=== PATIENT | male | born 1990 | race Caucasian/White ===

== ENCOUNTER 2020-01-14 06:52 | Inpatient (IN) | payer OTHER ==
[2020-01-14] MEDS ORDERED: LORazepam 2 MG/ML INJ IM STA (06:58)
--- NOTE | 2020-01-14 07:19 | ED ---
General Adult HPI - General Chief complaint: Psychiatric Symptoms Stated complaint: Mental Health Time Seen by Provider: 01/14/20 06:58 Source: police, EMS, RN notes reviewed, old records reviewed Mode of arrival: EMS Limitations: no limitations - History of Present Illness Initial comments: Patient is a 29-year-old male presents for his murmurs today via EMS after [place] [address] Patient is reportedly traveling from to come see with his friend. His friend reportedly stopped at a rest stop. The friend returned from the restaurant to the car he found that Zuhair was missing and running down [id number]. The friend's name is Arvind, called 911 and police and EMS arrived to Zuhair calling himself stay in and speaking in "gibberish". Patient reports that his name is not Zuhair and it is "lumeni". Patient denies any drug use at this time but does report that he "ate souls". Patient claims that he is the devil. Review of Systems ROS Statement: Those systems with pertinent positive or pertinent negative responses have been documented in the HPI. ROS Other: All systems not noted in ROS Statement are negative. Past Medical History Past Medical History: Unable to Obtain History of Any Multi-Drug Resistant Organisms: Unobtainable Past Surgical History: Unable to Obtain Past Psychological History: Unable to Obtain Smoking Status: Unknown if ever smoked Past Alcohol Use History: Unable to Obtain Past Drug Use History: Unable to Obtain General Exam - General Exam Comments Initial Comments: 29-year-old male. Limitations: no limitations General appearance: alert, in no apparent distress Head exam: Present: atraumatic, normocephalic, normal inspection, other (diaphoretic) Eye exam: Present: normal appearance, EOMI. Absent: PERRL (dilated pupil), scleral icterus, conjunctival injection, periorbital swelling ENT exam: Present: normal exam, mucous membranes dry, mucous membranes moist. Absent: normal oropharynx Neck exam: Present: normal inspection. Absent: tenderness, meningismus, lymphadenopathy Respiratory exam: Present: normal lung sounds bilaterally. Absent: respiratory distress, wheezes, rales, rhonchi, stridor Cardiovascular Exam: Present: regular rate, normal rhythm, normal heart sounds. Absent: systolic murmur, diastolic murmur, rubs, gallop, clicks GI/Abdominal exam: Present: soft, normal bowel sounds. Absent: distended, tenderness, guarding, rebound, rigid Extremities exam: Present: normal inspection, full ROM, normal capillary refill. Absent: tenderness, pedal edema, joint swelling, calf tenderness Back exam: Present: normal inspection Neurological exam: Present: altered Psychiatric exam: Present: agitated, manic, other (Patient is hyperverbal, with nonsensical rambling.). Absent: normal affect, normal mood, anxious Skin exam: Present: warm, dry, intact, normal color. Absent: rash Course Vital Signs 01/14/20 06:57 Temperature 103.1 F H Pulse Rate 73 Respiratory 22 Rate O2 Sat by Pulse 94 L Oximetry - Reevaluation(s) Reevaluation #1: 01/14/20 07:18 I intended to contact patient's friend at Arvind Tellez whom is [facility] at [facility]. The phone went to [employer]. Arvind Tellez's phone number is [phone]. Procedures - Restraint - Face to Face Restraint Occurrence 1 Patient's Immediate Situation: Endangers self safety, Endangers others' safety, Violent behavior Patient's Immediate Situation - Comment: Patient was transitioned from handcuffs from police upon arrival to emergency department as a 4. restraints due to restlessness agitation and bizarre behavior. Patient's Reaction to the Intervention: Anxious, Bizarre, Restless, Resistive to care Patient's Medical & Behavioral Condition: Anxious, Agitated, Flight of ideas, Bizarre behavior Need to Continue or Terminate Restraint or Seclusion: Continue Face to Face Eval of Restraint Date: 01/14/20 Face to Face Eval of Restraint Time: 06:55 Medical Decision Making - Medical Decision Making 29-year-old male presents emergency department today for concern for altered mental status and was found in the highway naked. He Patient was thought to be febrile agitated and diaphoretic upon arrival. Urine drug screen is positive for amphetamines. Patient required Ativan and Haldol for sedation. He was placed in 4. soft restraints due to agitation appear for harming himself. Patient's lab work was reviewed. This have evidence of leukocytosis of 24,000. No other source for fever at this time. Blood cultures were completed. Was given 1 dose of IV Rocephin. Patient's fever is coming down after receiving fluids. Allegedly the fever is related to being out in the hot sun and agitated and methamphetamine use. CT of the brain was negative for acute process. Patient was reevaluated now more sedated at this time. Discusses Dr. Singh also examined Patient. Patient will be admitted this time medically for fever, and psychosis. - Lab Data Result diagrams: 01/14/20 07:53 01/14/20 07:53 Lab Results 01/14/20 01/14/20 01/14/20 Range/Units 07:12 07:24 07:53 WBC 24.5 H (3.8-10.6) k/uL RBC 4.76 (4.30-5.90) m/uL Hgb 15.7 (13.0-17.5) gm/dL Hct 44.5 (39.0-53.0) % MCV 93.5 (80.0-100.0) fL MCH 32.9 (25.0-35.0) pg MCHC 35.2 (31.0-37.0) g/dL RDW 12.6 (11.5-15.5) % Plt Count 322 (150-450) k/uL Neutrophils % 88 % Lymphocytes % 6 % Monocytes % 4 % Eosinophils % 0 % Basophils % 0 % Neutrophils # 21.6 H (1.3-7.7) k/uL Lymphocytes # 1.5 (1.0-4.8) k/uL Monocytes # 1.1 H (0-1.0) k/uL Eosinophils # 0.0 (0-0.7) k/uL Basophils # 0.1 (0-0.2) k/uL PT (9.0-12.0) sec INR (<1.2) APTT (22.0-30.0) sec Sodium (137-145) mmol/L Potassium (3.5-5.1) mmol/L Chloride (98-107) mmol/L Carbon Dioxide (22-30) mmol/L Anion Gap mmol/L BUN (9-20) mg/dL Creatinine (0.66-1.25) mg/dL Est GFR (CKD-EPI)AfAm (>60 ml/min/1.73 sqM) Est GFR (CKD-EPI)NonAf (>60 ml/min/1.73 sqM) Glucose (74-99) mg/dL Lactic Ac Sepsis Rflx Plasma Lactic Acid Sammy (0.7-2.0) mmol/L Calcium (8.4-10.2) mg/dL Total Bilirubin (0.2-1.3) mg/dL AST (17-59) U/L ALT (4-49) U/L Alkaline Phosphatase (38-126) U/L Total Protein (6.3-8.2) g/dL Albumin (3.5-5.0) g/dL TSH (0.465-4.680) mIU/L Urine Color Yellow Urine Appearance Cloudy (Clear) Urine pH 6.5 (5.0-8.0) Ur Specific [place] 1.036 H (1.001-1.035) Urine Protein 2+ H (Negative) Urine Glucose (UA) Negative (Negative) Urine Ketones 1+ H (Negative) Urine Blood Negative (Negative) Urine Nitrite Negative (Negative) Urine Bilirubin Negative (Negative) Urine Urobilinogen 4.0 (<2.0) mg/dL Ur Leukocyte Esterase Negative (Negative) Urine RBC 7 H (0-5) /hpf Urine WBC 7 H (0-5) /hpf Ur Squamous Epith Cells <1 (0-4) /hpf Urine Bacteria Many H (None) /hpf Hyaline Casts 4 H (0-2) /lpf Urine Mucus Many H (None) /hpf Urine Yeast (Budding) Occasional H (None) /hpf Urine Sperm Many H (None) /hpf Urine Opiates Screen Not Detected (NotDetected) Ur Oxycodone Screen Not Detected (NotDetected) Urine Methadone Screen Not Detected (NotDetected) Ur Propoxyphene Screen Not Detected (NotDetected) Ur Barbiturates Screen Not Detected (NotDetected) U Tricyclic Antidepress Not Detected (NotDetected) Ur Phencyclidine Scrn Not Detected (NotDetected) Ur Amphetamines Screen Detected H (NotDetected) U Methamphetamines Scrn Detected H (NotDetected) U Benzodiazepines Scrn Not Detected (NotDetected) Urine Cocaine Screen Not Detected (NotDetected) U Marijuana (THC) Screen Detected H (NotDetected) 01/14/20 01/14/20 01/14/20 Range/Units 07:53 07:53 07:53 WBC (3.8-10.6) k/uL RBC (4.30-5.90) m/uL Hgb (13.0-17.5) gm/dL Hct (39.0-53.0) % MCV (80.0-100.0) fL MCH (25.0-35.0) pg MCHC (31.0-37.0) g/dL RDW (11.5-15.5) % Plt Count (150-450) k/uL Neutrophils % % Lymphocytes % % Monocytes % % Eosinophils % % Basophils % % Neutrophils # (1.3-7.7) k/uL Lymphocytes # (1.0-4.8) k/uL Monocytes # (0-1.0) k/uL Eosinophils # (0-0.7) k/uL Basophils # (0-0.2) k/uL PT 10.8 (9.0-12.0) sec INR 1.0 (<1.2) APTT 21.0 L (22.0-30.0) sec Sodium 147 H (137-145) mmol/L Potassium 4.1 (3.5-5.1) mmol/L Chloride 108 H (98-107) mmol/L Carbon Dioxide 27 (22-30) mmol/L Anion Gap 12 mmol/L BUN 25 H (9-20) mg/dL Creatinine 1.27 H (0.66-1.25) mg/dL Est GFR (CKD-EPI)AfAm 87 (>60 ml/min/1.73 sqM) Est GFR (CKD-EPI)NonAf 75 (>60 ml/min/1.73 sqM) Glucose 61 L (74-99) mg/dL Lactic Ac Sepsis Rflx Plasma Lactic Acid Sammy 2.2 H* (0.7-2.0) mmol/L Calcium 10.1 (8.4-10.2) mg/dL Total Bilirubin 1.4 H (0.2-1.3) mg/dL AST 84 H (17-59) U/L ALT 44 (4-49) U/L Alkaline Phosphatase 63 (38-126) U/L Total Protein 8.0 (6.3-8.2) g/dL Albumin 5.1 H (3.5-5.0) g/dL TSH 0.652 (0.465-4.680) mIU/L Urine Color Urine Appearance (Clear) Urine pH (5.0-8.0) Ur Specific [place] (1.001-1.035) Urine Protein (Negative) Urine Glucose (UA) (Negative) Urine Ketones (Negative) Urine Blood (Negative) Urine Nitrite (Negative) Urine Bilirubin (Negative) Urine Urobilinogen (<2.0) mg/dL Ur Leukocyte Esterase (Negative) Urine RBC (0-5) /hpf Urine WBC (0-5) /hpf Ur Squamous Epith Cells (0-4) /hpf Urine Bacteria (None) /hpf Hyaline Casts (0-2) /lpf Urine Mucus (None) /hpf Urine Yeast (Budding) (None) /hpf Urine Sperm (None) /hpf Urine Opiates Screen (NotDetected) Ur Oxycodone Screen (NotDetected) Urine Methadone Screen (NotDetected) Ur Propoxyphene Screen (NotDetected) Ur Barbiturates Screen (NotDetected) U Tricyclic Antidepress (NotDetected) Ur Phencyclidine Scrn (NotDetected) Ur Amphetamines Screen (NotDetected) U Methamphetamines Scrn (NotDetected) U Benzodiazepines Scrn (NotDetected) Urine Cocaine Screen (NotDetected) U Marijuana (THC) Screen (NotDetected) 01/14/20 01/14/20 Range/Units 08:32 11:05 WBC (3.8-10.6) k/uL RBC (4.30-5.90) m/uL Hgb (13.0-17.5) gm/dL Hct (39.0-53.0) % MCV (80.0-100.0) fL MCH (25.0-35.0) pg MCHC (31.0-37.0) g/dL RDW (11.5-15.5) % Plt Count (150-450) k/uL Neutrophils % % Lymphocytes % % Monocytes % % Eosinophils % % Basophils % % Neutrophils # (1.3-7.7) k/uL Lymphocytes # (1.0-4.8) k/uL Monocytes # (0-1.0) k/uL Eosinophils # (0-0.7) k/uL Basophils # (0-0.2) k/uL PT (9.0-12.0) sec INR (<1.2) APTT (22.0-30.0) sec Sodium (137-145) mmol/L Potassium (3.5-5.1) mmol/L Chloride (98-107) mmol/L Carbon Dioxide (22-30) mmol/L Anion Gap mmol/L BUN (9-20) mg/dL Creatinine (0.66-1.25) mg/dL Est GFR (CKD-EPI)AfAm (>60 ml/min/1.73 sqM) Est GFR (CKD-EPI)NonAf (>60 ml/min/1.73 sqM) Glucose (74-99) mg/dL Lactic Ac Sepsis Rflx Y Plasma Lactic Acid Sammy 1.2 (0.7-2.0) mmol/L Calcium (8.4-10.2) mg/dL Total Bilirubin (0.2-1.3) mg/dL AST (17-59) U/L ALT (4-49) U/L Alkaline Phosphatase (38-126) U/L Total Protein (6.3-8.2) g/dL Albumin (3.5-5.0) g/dL TSH (0.465-4.680) mIU/L Urine Color Urine Appearance (Clear) Urine pH (5.0-8.0) Ur Specific [place] (1.001-1.035) Urine Protein (Negative) Urine Glucose (UA) (Negative) Urine Ketones (Negative) Urine Blood (Negative) Urine Nitrite (Negative) Urine Bilirubin (Negative) Urine Urobilinogen (<2.0) mg/dL Ur Leukocyte Esterase (Negative) Urine RBC (0-5) /hpf Urine WBC (0-5) /hpf Ur Squamous Epith Cells (0-4) /hpf Urine Bacteria (None) /hpf Hyaline Casts (0-2) /lpf Urine Mucus (None) /hpf Urine Yeast (Budding) (None) /hpf Urine Sperm (None) /hpf Urine Opiates Screen (NotDetected) Ur Oxycodone Screen (NotDetected) Urine Methadone Screen (NotDetected) Ur Propoxyphene Screen (NotDetected) Ur Barbiturates Screen (NotDetected) U Tricyclic Antidepress (NotDetected) Ur Phencyclidine Scrn (NotDetected) Ur Amphetamines Screen (NotDetected) U Methamphetamines Scrn (NotDetected) U Benzodiazepines Scrn (NotDetected) Urine Cocaine Screen (NotDetected) U Marijuana (THC) Screen (NotDetected) - Radiology Data Radiology results: report reviewed CT of the brain is negative for any acute process. Borderline mild cardiomegaly correlate clinically. Limited assessment of the left lung to do soft tissue overlap retained portion lung rincon are clear. Disposition Clinical Impression: Psychosis, Fever, Amphetamine abuse Disposition: ADMITTED IP TO THIS HOSP Condition: Stable Is patient prescribed a controlled substance at d/c from ED?: No Referrals: None,Stated [Primary Care Provider] - 1-2 days Time of Disposition: 12:08
[2020-01-14] MEDS ORDERED: diphenhydrAMINE 50 MG/ML 1 ML VIAL IM STA (07:22)
[2020-01-14] MEDS ORDERED: ACETAMINOPHEN TAB 500 MG TAB PO STA (07:27)
[2020-01-14 07:31] LABS: Amphetamine Screen,Urine Detected (NotDetected); Barbiturate Screen,Urine Not Detected (NotDetected); Benzodiazepines Screen,Urine Not Detected (NotDetected); Cocaine Screen,Urine Not Detected (NotDetected); Methadone Screen, Urine Not Detected (NotDetected); Opiate Screen,Urine Not Detected (NotDetected); Oxycodone Screen, Urine Not Detected (NotDetected); Phencyclidine Screen,Urine Not Detected (NotDetected); Tricyclic Antidepressant,Urine Not Detected (NotDetected); Urn Cannabinoid Scrn Detected (NotDetected)
[2020-01-14] MEDS: SODIUM CHLORIDE 0.9% 500 ML 500 ML IV SCH ×4 (07:50→15:00)
[2020-01-14 08:15] LABS: Basophils # (A) 0.1 k/uL (0-0.2); Basophils % (A) 0 %; Eosinophils % (A) 0 %; HCT 44.5 % (39.0-53.0); HGB 15.7 gm/dL (13.0-17.5); Lymphocytes # (A) 1.5 k/uL (1.0-4.8); Lymphocytes % (A) 6 %; MCH 32.9 pg (25.0-35.0); MCHC 35.2 g/dL (31.0-37.0); MCV 93.5 fL (80.0-100.0); Mean Platelet Volume 7.4; Monocytes # (A) 1.1 k/uL (0-1.0); Monocytes % (A) 4 %; Neutrophils # (A) 21.6 k/uL (1.3-7.7); Neutrophils % (A) 88 %; Platelet Count 322 k/uL (150-450); RBC 4.76 m/uL (4.30-5.90); RDW 12.6 % (11.5-15.5); WBC 24.5 k/uL (3.8-10.6)
[2020-01-14 08:31] LABS: Albumin 5.1 g/dL (3.5-5.0); Calcium 10.1 mg/dL (8.4-10.2); Potassium 4.1 mmol/L (3.5-5.1); Total Bilirubin 1.4 mg/dL (0.2-1.3)
--- NOTE | 2020-01-14 08:39 | XR ---
EXAMINATION TYPE: XR chest 1V portable DATE OF EXAM: 01/14/2020 COMPARISON: NONE HISTORY: Fever TECHNIQUE: Single frontal view of the chest is obtained. FINDINGS: Soft tissue artifact limits assessment of the left lung. Heart size mildly prominent. Ther e is no focal air space opacity, pleural effusion, or pneumothorax seen. The cardiac silhouette size is within normal limits. The osseous structures are intact. IMPRESSION: 1. Borderline to mild cardiomegaly correlate clinically. Limited assessment of the left lung due to s oft tissue overlap retained portion of the lung rincon clear.
[2020-01-14 08:40] LABS: Prothrombin Time 10.8 sec (9.0-12.0)
[2020-01-14 08:40] LABS: Appearance,Urine Cloudy (Clear); Bacteria,Urine Many /hpf; Bilirubin,Urine Negative (Negative); Blood,Urine Negative (Negative); Budding Yeast,Urine Occasional /hpf; Color,Urine Yellow; Glucose,Urine (UA) Negative (Negative); Hyaline Casts,Urine 4 /lpf (0-2); Ketones,Urine 1+ (Negative); Leukocyte Esterase,Urine Negative (Negative); Mucus,Urine Many /hpf; Nitrite,Urine Negative (Negative); PH, Urine 6.5 (5.0-8.0); Protein,Urine 2+ (Negative); RBC,Urine 7 /hpf (0-5); Specific Gravity,Urine 1.036 (1.001-1.035); Sperm,Urine Many /hpf; Squamous Epithelial Cell,Urine <1 /hpf (0-4); WBC,Urine 7 /hpf (0-5)
[2020-01-14] MEDS ORDERED: LORazepam 2 MG/ML INJ IV STA (08:41)
[2020-01-14] MEDS ORDERED: IBUPROFEN 600 MG TAB PO STA (09:45)
[2020-01-14] MEDS ORDERED: HALOPERIDOL DECANOATE 50 MG/ML 1 ML VIAL IM STA (09:51)
[2020-01-14] MEDS ORDERED: SODIUM CHLORIDE 0.9% 2,000 ML IV ONE (09:51)
[2020-01-14] MEDS ORDERED: HALOPERIDOL LACTATE 5 MG/ML 1 ML VIAL IM STA (09:54)
--- NOTE | 2020-01-14 11:30 | CT ---
EXAMINATION TYPE: CT brain wo con DATE OF EXAM: 01/14/2020 COMPARISON: None HISTORY: Mental status changes CT DLP: 1142.4 mGycm. Automated Exposure Control for Dose Reduction was Utilized. TECHNIQUE: CT scan of the head is performed without contrast. FINDINGS: There is no acute intracranial hemorrhage, mass effect, or midline shift identified. The ventricles and sulci are within normal limits in size. The globes are intact and the visualized sin uses are clear. IMPRESSION: No acute intracranial hemorrhage, mass effect, or midline shift is seen. Correlate with MRI as clinically warranted.
[2020-01-14] MEDS ORDERED: cefTRIAXone IN SWFI 1,000 MG/10 ML SYRINGE IVP STA (11:33)
[2020-01-14] MEDS ORDERED: KETOROLAC 30 MG/ML 1 ML VIAL IVP PRN (12:08)
[2020-01-14] MEDS ORDERED: ACETAMINOPHEN TAB 325 MG TAB PO PRN (12:08)
[2020-01-14] MEDS ORDERED: MORPHINE SULFATE 4 MG/ML SYRINGE IV PRN (12:08)
[2020-01-14] MEDS ORDERED: IBUPROFEN 400 MG TAB PO PRN (12:08)
[2020-01-14] MEDS ORDERED: NALOXONE 0.4 MG/ML 1 ML VIAL IV PRN (12:08)
[2020-01-14] MEDS: SODIUM CHLORIDE 0.9% 1,000 ML IV SCH (15:01)
--- NOTE | 2020-01-14 16:58 | HP ---
HISTORY AND PHYSICAL CHIEF COMPLAINTS: Abnormal behavior. HISTORY OF PRESENT ILLNESS: This 29-year-old gentleman with a past medical history of no significant medical issues except neck surgery, working at [employer] apparently elsewhere was found [place] [address] in the [facility]. The patient was traveling with his friend. They were driving and the friend found out the patient was missing and was running naked and police was called and subsequently EMS brought the patient to [facility]. Patient is combative and restless and the patient was given Haldol with some sedation and the patient admitted for evaluation and treatment. The patient uses history of crystal meth. Otherwise, there is no history of other substance abuse. There is no history of fever, rigors. No loss of consciousness, seizures at this time. The patient also found to be febrile in the ER up to 103.1. PAST MEDICAL HISTORY: History of neck surgery, substance abuse, smoking. MEDICATIONS: None. ALLERGIES: None. FAMILY HISTORY: No history of heart disease or strokes in family. SOCIAL HISTORY: Occasional alcohol, smoking. REVIEW OF SYSTEMS: ENT: No diminished vision. No diminished hearing. CARDIOVASCULAR: No angina or palpitations. RESPIRATORY: As mentioned earlier. GI no nausea or vomiting. no dysuria. Nervous system: No numbness or weakness. ALLERGY: No asthma or hayfever. MUSCULOSKELETAL as mentioned earlier. HEMATOLOGY/ONCOLOGY: No history of anemia. ENDOCRINE: No history of diabetes. CONSTITUTIONAL: As mentioned earlier. DERMATOLOGY: Negative. RHEUMATOLOGY: Negative. PSYCHIATRY as mentioned. PHYSICAL EXAM: The patient is . Pulse is 109. Blood pressure 120/62. Respirations 20. Temperature 98.4, pulse ox 94% on room air. HEENT: Conjunctivae normal. Oral mucosa moist. NECK is no jugular venous distention. No carotid bruit. No lymph node enlargement. CARDIOVASCULAR: S1, S2 normal. No S3, no S4. RESPIRATORY: Breath sounds diminished in the bases. No rhonchi. No crackles. ABDOMEN: Soft, nontender. No mass palpable. LEGS: Minimal abrasion in the legs present otherwise no swelling. NERVOUS SYSTEM: Higher functions as mentioned. Moves all four limbs. No focal motor or sensory deficits. LYMPHATICS: No lymph nodes palpable in the neck, axillae or groin. JOINTS: No active deforming arthropathy. SKIN: No ulcer, rash or bleeding. LABS: At this time shows WBC 24.5, and sodium 147, creatinine is 1.27 and plasma lactic acid 2.2 and bilirubin is 1.4. ASSESSMENT: 1. Possible acute meth overdose with psychosis. 2. Rule out sepsis. 3. Rule out COVID-19. 4. Polysubstance abuse including methamphetamines and THC. 5. Hyponatremia and dehydration. 6. Dehydration with acute renal failure, acute tubular necrosis. 7. Elevated plasma lactic acid. 8. Elevated bilirubin and AST. 9. Increased WBC possibly reactive, possibly secondary to sepsis. 10.History of neck surgery. 11.FULL CODE. RECOMMENDATIONS AND DISCUSSION: This 29-year-old gentleman who presented with multiple complex medical issues, we will monitor the patient closely. Continue the current medications, and symptomatic treatment. Chest x-ray and CT scan was reviewed personally by me and showed some increased bronchovascular markings. Otherwise, we will initiate broad-spectrum IV antibiotics. Obtain cultures. IV fluids. Repeat labs. Once the patient is stable, psychiatric consultation. Otherwise we will continue to monitor. Prognosis guarded because of multiple complex medical issues. Further recommendations to follow. MMODL / IJN: [id number] / MITCH
[2020-01-14] MEDS ORDERED: ZIPRASIDONE 20 MG VIAL IM PRN (18:37)
[2020-01-15] MEDS: SODIUM CHLORIDE 0.9% 1,000 ML IV SCH ×2 (06:05→10:28)
[2020-01-15 08:10] VITALS: BP 116/72; PULSE 123; RESP 18; TEMP 97.8
[2020-01-15] MEDS ORDERED: PANTOPRAZOLE 40 MG/10 ML VIAL IV SCH (09:00)
[2020-01-15 09:53] LABS: Basophils # (A) 0.1 k/uL (0-0.2); Basophils % (A) 1 %; Eosinophils # (A) 0.1 k/uL (0-0.7); Eosinophils % (A) 1 %; HCT 48.7 % (39.0-53.0); HGB 15.6 gm/dL (13.0-17.5); Lymphocytes # (A) 1.7 k/uL (1.0-4.8); Lymphocytes % (A) 16 %; MCH 31.3 pg (25.0-35.0); MCHC 32.1 g/dL (31.0-37.0); MCV 97.4 fL (80.0-100.0); Mean Platelet Volume 8.6; Monocytes # (A) 0.6 k/uL (0-1.0); Monocytes % (A) 6 %; Neutrophils # (A) 8.4 k/uL (1.3-7.7); Neutrophils % (A) 75 %; Platelet Count 233 k/uL (150-450); RDW 12.7 % (11.5-15.5); WBC 11.2 k/uL (3.8-10.6)
[2020-01-15 10:00] LABS: ALT 62 U/L (4-49); AST 113 U/L (17-59); African American GFR (CKD) >90 (>60 ml/min/1.73 sqM); Albumin 4.3 g/dL (3.5-5.0); Alkaline Phosphatase 42 U/L (38-126); Anion Gap 8 mmol/L; Blood Urea Nitrogen 17 mg/dL (9-20); Calcium 8.7 mg/dL (8.4-10.2); Carbon Dioxide 26 mmol/L (22-30); Chloride 102 mmol/L (98-107); Glucose 91 mg/dL (74-99); Non-African American GFR(CKD) >90 (>60 ml/min/1.73 sqM); Potassium 4.8 mmol/L (3.5-5.1); Sodium 136 mmol/L (137-145); Total Bilirubin 1.6 mg/dL (0.2-1.3); Total Protein 6.6 g/dL (6.3-8.2)
[2020-01-15 10:15] LABS: Creatine Kinase 1515 U/L (55-170)
--- NOTE | 2020-01-15 15:24 | P.CN ---
Psychiatric Consult - . Consult date: 01/15/20 Consult:: IDENTIFYING DATA: His 29-year-old single male who was brought to the ED by EMS workers found "naked on the [place] on [address] HISTORY OF PRESENT ILLNESS: He was traveling with friends to [place] to attend a local [employer]. They stopped at a restaurant and when they returned the car the patient was missing. Apparently he began wandering down [address]. His friend called 911. When EMS arrived the patient was "talking gibberish" He stated his name was not Zuhair that it was the "lumeni". He denied use of drugs to the ED physician but his UDS was positive for amphetamines, methamphetamines and marijuana. During our interview, he admitted to swallowing the capsule that was sold to him as methamphetamine. After he took the capsule he wandered from his friend's car and was found by the state police. He has limited recollection of the events that occurred. He alleged that he took the capsule because he wanted to "have a good time." He was vague and guarded about his substance abuse history. He admitted to using methamphetamine "a couple times" but denied that it was a problem. He denied use of other drugs but when confronted about his urine drug screen she admitted to using marijuana. After talking about his work history he revealed that he received a DUI last year, lost his license and as a result lost his job. He currently denies feeling depressed or having thoughts of or suicide. He denied homicidal ideation. He denied feeling anxious, tense or nervous. He denied experiencing ideas reference, thought insertion, thought broadcasting or thought control. He denied experiencing auditory, visual or olfactory hallucinations. PAST PSYCHIATRIC HISTORY: He denied history psychiatric hospitalizations. He met with a "counselor" when he was in foster care as a child and adolescent. He was prescribed psychostimulants (Ritalin and Adderall" and Seroquel when he was a child and adolescent. PAST MEDICAL HISTORY: He denied a history of major medical problems. ALLERGIES: None SUBSTANCE USE HISTORY: He denied a history of substance abuse treatment or substance use residential treatment. He was vague and guarded about his substance abuse history and only reluctantly admitted to using methamphetamine, marijuana and having an alcohol use related problem. FAMILY PSYCHIATRIC/SUBSTANCE USE HISTORY: His mother had a history of substance use problems SOCIAL HISTORY: His born in [place] and raised by his mother until he is 7 years old. He is removed from his mother and placed in foster care from ages 7- 15 due to history of neglect by his mother. He lives with his mother and grandmother after he left the foster care system. He's been living in [place] with friends. He work with [employer] for 7 years until he was terminated last year. He is currently receiving unemployment income. He admitted to one [facility]. MENTAL STATUS EXAM: He presented as a thin dressed and groomed 29-year-old male who is laying comfortably in bed. His right arm was bandaged and fixated for the IV. He made eye contact and appeared to attend to the interview. He had no distinguishing features or prominent physical abnormalities. She had blunted facial expression. He is alert and oriented to person, place and time. He has psychomotor retardation but no abnormal involuntary movements. His speech was spontaneous with decreased rate and volume. He had no articulation difficulties. His affect was blunted but stable and appropriate. He denied suicidal ideation or wishes. He denied homicidal ideations. He denies present is reference, paranoid ideation or delus ions. His thinking was concrete but his associations were coherent, logical and goal directed. He denied hallucinations and didn't appear to responding to internal stimuli. 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 He was guarded about his substance use history but appears to have a history of methamphetamine, cannabis and alcohol use problems. The substance use psychosis has resolved with no residual psychotic symptoms. There is no indication for admission to the psychiatric unit. DIAGNOSIS: Amphetamine induced psychotic disorder, amphetamine use disorder unspecified, cannabis use disorder, alcohol use disorder RECOMMENDATION: Provide him with information about outpatient substance abuse services and his community. Psychiatry will sign off on the case. Thank you for the consult. 01/15/20 15:12
--- NOTE | 2020-01-15 23:44 | DS ---
DISCHARGE SUMMARY DATE OF SERVICE: 01/15/2020 FINAL DIAGNOSES: 1. Possible acute meth overdose with psychosis. 2. Sepsis ruled out. 3. COVID-19 ruled out. 4. Polysubstance abuse including methamphetamine, THC. 5. Hypernatremia, dehydration, improved. 6. Dehydration with acute renal failure acute tubular necrosis, present on admission, improved. 7. Elevated plasma lactic acid. 8. Secondary dehydration. 9. Elevated bilirubin and AST. 10.Increased WBC, possibly reactive, improved. 11.History of neck surgery. 12.FULL CODE. DISCHARGE DISPOSITION: The patient will be discharged in stable condition with guarded prognosis. HISTORY OF PRESENT ILLNESS: This 29-year-old gentleman with a past medical history of multiple medical problems was admitted with change in mental status and possible psychosis after meth overdose. The patient was treated symptomatically. Psychiatry saw the patient who recommended close followup with primary physician in the outpatient setting. Otherwise, the patient is stable, keen on going home at this time and with Psychiatry clearance of the patient, the patient will be discharged home. On exam, vitals are stable. CARDIOVASCULAR: S1, S2 muffled. ABDOMEN: Soft. NERVOUS SYSTEM: No focal deficits. DISCHARGE ADVICE AND MEDICATIONS: 1. Diet is cardiac. 2. Activity limited until followup. 3. Otherwise medications will be Motrin p.r.n. 4. Attend drug rehab. 5. The rest of the medications per Psychiatry. 6. and primary care in the outpatient setting. MMODL / GARCÍAN: [id number] /
[2020-01-16] MEDS ORDERED: PANTOPRAZOLE 40 MG TABLET PO SCH (07:30)
== END 2020-01-15 15:35 | disposition home or self-care (01) | DRG 917 ==
LOC: EC 06:52 → 4SSUR 12:08
PROVIDERS: ADMIT Hospitalist; ATTEND Hospitalist
DX: T43.621A Poisoning by amphetamines, accidental (unintentional), initial encounter (principal); N17.0 Acute kidney failure with tubular necrosis; E87.1 Hypo-osmolality and hyponatremia; Z16.24 Resistance to multiple antibiotics; T40.3X1A Poisoning by methadone, accidental (unintentional), initial encounter; F29 Unspecified psychosis not due to a substance or known physiological condition; E86.0 Dehydration; D72.829 Elevated white blood cell count, unspecified; F12.10 Cannabis abuse, uncomplicated; F15.10 Other stimulant abuse, uncomplicated; R50.9 Fever, unspecified; Z78.1 Physical restraint status; Z11.59 Encounter for screening for other viral diseases
CPT/HCPCS: 36415; 70450; 71045; 80053; 80306; 81001; 82075; 82550; 83605; 84443; 85025; 85610; 85730; 87086; 93005; 96361; 96372; 96374; 96375; 99285

== ENCOUNTER 2020-01-19 11:07 | Emergency (ER) | payer OTHER ==
[2020-01-19 11:15] VITALS: RESP 18
--- NOTE | 2020-01-19 12:03 | ED ---
General Adult HPI - General Source: patient, police, RN notes reviewed, old records reviewed Mode of arrival: ambulatory Limitations: no limitations <Hudson Negrete - Last Filed: 01/19/20 14:59> <Dawson Hogue - Last Filed: 01/19/20 15:32> - General Chief complaint: Psychiatric Symptoms Stated complaint: mental health Time Seen by Provider: 01/19/20 11:22 - History of Present Illness Initial comments: 29-year-old male presents for psychiatric evaluation. Patient was found outside, wondering, somewhat incoherent. He had recent hospital admission with methamphetamine overdose and acute psychosis. He is denying any suicidal or homicidal ideation. He is able to answer questions for me, somewhat agitated but otherwise cooperative. Denies drug abuse today. (Hudson Negrete) - Related Data Previous Rx's Medication Instructions Recorded Ibuprofen [Motrin] 400 mg PO Q6HR PRN tab 01/15/20 Allergies Allergy/AdvReac Type Severity Reaction Status Date / Time No Known Allergies Allergy Verified 01/19/20 13:04 Review of Systems ROS Other: All systems not noted in ROS Statement are negative. <Hudson Negrete - Last Filed: 01/19/20 14:59> ROS Other: All systems not noted in ROS Statement are negative. <Dawson Hogue - Last Filed: 01/19/20 15:32> ROS Statement: Those systems with pertinent positive or pertinent negative responses have been documented in the HPI. Past Medical History Past Medical History: Unable to Obtain History of Any Multi-Drug Resistant Organisms: Unobtainable Past Surgical History: Unable to Obtain Additional Past Surgical History / Comment(s): neck surgery Past Psychological History: Unable to Obtain Smoking Status: Current some day smoker Past Alcohol Use History: Occasional Past Drug Use History: None Reported - Past Family History Mother History Unknown: Yes <Hudson Negrete - Last Filed: 01/19/20 14:59> General Exam Limitations: no limitations General appearance: alert, anxious Head exam: Present: atraumatic, normocephalic Eye exam: Present: normal appearance, PERRL, EOMI ENT exam: Present: normal exam Neck exam: Present: normal inspection. Absent: tenderness, meningismus Respiratory exam: Present: normal lung sounds bilaterally. Absent: respiratory distress, wheezes, rales Cardiovascular Exam: Present: normal rhythm, tachycardia GI/Abdominal exam: Present: soft. Absent: distended, tenderness, guarding Extremities exam: Present: normal inspection, normal capillary refill. Absent: pedal edema Back exam: Present: normal inspection Neurological exam: Present: alert, oriented X3, CN II-XII intact. Absent: motor sensory deficit Psychiatric exam: Present: agitated, anxious, manic. Absent: suicidal ideation Skin exam: Present: warm, intact, diaphoretic. Absent: cyanosis <Hudson Negrete - Last Filed: 01/19/20 14:59> Course <Hudson Negrete - Last Filed: 01/19/20 14:59> <Dawson Hogue - Last Filed: 01/19/20 15:32> Vital Signs 01/19/20 01/19/20 11:13 15:07 Temperature 99.5 F Pulse Rate 116 H 115 H Respiratory 18 Rate Blood Pressure 143/85 O2 Sat by Pulse 96 96 Oximetry - Reevaluation(s) Reevaluation #1: 01/19/20 14:59 Patient's care is signed out at shift change to Dr. Hogue Awaiting EPS evaluation. (Hudson Negrete) Reevaluation #2: 01/19/20 15:31 Patient continues to deny homicidal or suicidal thoughts was made medically clear for psychiatry (Dawson Hogue) Medical Decision Making <Dawson Hogue - Last Filed: 01/19/20 15:32> - Medical Decision Making 29-year-old male with recent psychiatric admission coming in for drug overdose patient again seen by psychiatry here in the ER medic and need for inpatient admission patient given substance abuse resources and can be discharged (Dawson Hogue) Disposition <Hudson Negrete - Last Filed: 01/19/20 14:59> Is patient prescribed a controlled substance at d/c from ED?: No <Dawson Hogue - Last Filed: 01/19/20 15:32> Clinical Impression: Psychosis, Amphetamine abuse Disposition: HOME SELF-CARE Condition: Fair Instructions (If sedation given, give patient instructions): Brief Psychotic Disorder (ED) Referrals: None,Stated [Primary Care Provider] - 1-2 days
[2020-01-19 16:31] VITALS: BP 122/78; PULSE 71; TEMP 98.6
== END 2020-01-19 16:34 | disposition home or self-care (01) ==
LOC: EC 11:07
DX: F15.10 Other stimulant abuse, uncomplicated (principal); F29 Unspecified psychosis not due to a substance or known physiological condition; T43.621A Poisoning by amphetamines, accidental (unintentional), initial encounter; F41.9 Anxiety disorder, unspecified; F17.200 Nicotine dependence, unspecified, uncomplicated
CPT/HCPCS: 99285

== ENCOUNTER 2020-01-21 11:36 | Inpatient (IN) | payer OTHER ==
--- NOTE | 2020-01-21 12:38 | ED ---
Psych HPI - General Chief Complaint: Psychiatric Symptoms Stated Complaint: Mental health Time Seen by Provider: 01/21/20 11:44 Source: patient Mode of arrival: ambulatory - History of Present Illness Initial Comments: 29yo male who has known drug use history presenting to the ER today for chief complaint of brought by police by petition for bizarre behavior. Patient was having delusional thoughts and behaviors and police were called and they noted the patient was not making sense having very delusional thoughts rapid speech and brought him to emergency department after petition the patient further psychiatric evaluation. Patient on arrival is cooperative and appears manic he has rapid pressured speech. Patient has no complaints, Patient denies any recent fever, chills, shortness of breath, chest pain, back pain, abdominal pain, nausea or vomiting, numbness or tingling, dysuria or hematuria, constipation or diarrhea, headaches or visual changes, or any other complaints. - Related Data Home Medications Medication Instructions Recorded Confirmed No Known Home Medications 01/21/20 01/21/20 Allergies Allergy/AdvReac Type Severity Reaction Status Date / Time No Known Allergies Allergy Verified 01/21/20 14:47 Review of Systems ROS Statement: Those systems with pertinent positive or pertinent negative responses have been documented in the HPI. ROS Other: All systems not noted in ROS Statement are negative. Past Medical History Past Medical History: No Reported History History of Any Multi-Drug Resistant Organisms: Unobtainable Past Surgical History: Unable to Obtain Additional Past Surgical History / Comment(s): neck surgery Past Psychological History: Unable to Obtain Smoking Status: Current some day smoker Past Alcohol Use History: Occasional Past Drug Use History: Marijuana - Past Family History Mother History Unknown: Yes General Exam - General Exam Comments Initial Comments: General: The patient is awake and alert, pacing Eye: +3 mm pupils are equal, round and reactive to light, extra-ocular movements are intact. No nystagmus. There is normal conjunctiva bilaterally. No signs of icterus. Ears, nose, mouth and throat: There are moist mucous membranes and no oral lesions. Neck: The neck is supple, there is no tenderness or JVD. Cardiovascular: There is a regular rate and rhythm. No murmur, rub or gallop is appreciated. Respiratory: Lungs are clear to auscultation, respirations are non-labored, breath sounds are equal. No wheezes, stridor, rales, or rhonchi. Gastrointestinal: Soft, non-distended, non-tender abdomen without masses or organomegaly noted. There is no rebound or guarding present. Musculoskeletal: Normal ROM, no tenderness. Strength 5/5. Sensation intact. Pulses equal bilaterally 2+. Neurological: A&O x 3. CN II-XII intact, There are no obvious motor or sensory deficits. Coordination appears grossly intact. Skin: Skin is warm and dry and no rashes or lesions are noted. Psychiatric: Cooperative, but pressured speech, pacing. Limitations: no limitations Course Vital Signs 01/21/20 01/21/20 01/22/20 11:39 15:05 02:00 Temperature 98.5 F 98.4 F Pulse Rate 114 H 95 90 Respiratory 20 15 18 Rate Blood Pressure 149/58 131/72 130/74 O2 Sat by Pulse 97 96 97 Oximetry 01/22/20 01/22/20 01/22/20 08:00 09:00 10:00 Temperature Pulse Rate 66 Respiratory 16 16 16 Rate Blood Pressure 98/55 O2 Sat by Pulse 100 Oximetry - Reevaluation(s) Reevaluation #1: 01/21/20 Medical Decision Making - Medical Decision Making No focal neurological deficits. Patient petitioned for bizzare behaviors, known drug user. Patient appears manic, rapid pressured speech. Pacing. He is cooperative. Lab within acceptable limits. - Lab Data Result diagrams: 01/21/20 13:02 01/21/20 13:02 Lab Results 01/21/20 01/21/20 01/21/20 Range/Units 13:02 13:02 13:02 WBC 12.1 H (3.8-10.6) k/uL RBC 4.83 (4.30-5.90) m/uL Hgb 14.6 (13.0-17.5) gm/dL Hct 45.0 (39.0-53.0) % MCV 93.1 (80.0-100.0) fL MCH 30.3 (25.0-35.0) pg MCHC 32.5 (31.0-37.0) g/dL RDW 12.3 (11.5-15.5) % Plt Count 367 (150-450) k/uL Neutrophils % 69 % Lymphocytes % 21 % Monocytes % 6 % Eosinophils % 1 % Basophils % 1 % Neutrophils # 8.3 H (1.3-7.7) k/uL Lymphocytes # 2.5 (1.0-4.8) k/uL Monocytes # 0.8 (0-1.0) k/uL Eosinophils # 0.1 (0-0.7) k/uL Basophils # 0.1 (0-0.2) k/uL Sodium 140 (137-145) mmol/L Potassium 3.8 (3.5-5.1) mmol/L Chloride 104 (98-107) mmol/L Carbon Dioxide 26 (22-30) mmol/L Anion Gap 10 mmol/L BUN 17 (9-20) mg/dL Creatinine 1.07 (0.66-1.25) mg/dL Est GFR (CKD-EPI)AfAm >90 (>60 ml/min/1.73 sqM) Est GFR (CKD-EPI)NonAf >90 (>60 ml/min/1.73 sqM) Glucose 134 H (74-99) mg/dL Estimated Ave Glu mg/dL 97 Hemoglobin A1c 5.0 (4.0-6.0) % Calcium 9.4 (8.4-10.2) mg/dL Total Bilirubin 1.5 H (0.2-1.3) mg/dL AST 48 (17-59) U/L ALT 51 H (4-49) U/L Alkaline Phosphatase 59 (38-126) U/L Total Protein 7.2 (6.3-8.2) g/dL Albumin 4.8 (3.5-5.0) g/dL Triglycerides (<150) mg/dL Cholesterol (<200) mg/dL LDL Cholesterol, Calc (0-99) mg/dL HDL Cholesterol (40-60) mg/dL TSH (0.465-4.680) mIU/L 01/21/20 Range/Units 13:02 WBC (3.8-10.6) k/uL RBC (4.30-5.90) m/uL Hgb (13.0-17.5) gm/dL Hct (39.0-53.0) % MCV (80.0-100.0) fL MCH (25.0-35.0) pg MCHC (31.0-37.0) g/dL RDW (11.5-15.5) % Plt Count (150-450) k/uL Neutrophils % % Lymphocytes % % Monocytes % % Eosinophils % % Basophils % % Neutrophils # (1.3-7.7) k/uL Lymphocytes # (1.0-4.8) k/uL Monocytes # (0-1.0) k/uL Eosinophils # (0-0.7) k/uL Basophils # (0-0.2) k/uL Sodium (137-145) mmol/L Potassium (3.5-5.1) mmol/L Chloride (98-107) mmol/L Carbon Dioxide (22-30) mmol/L Anion Gap mmol/L BUN (9-20) mg/dL Creatinine (0.66-1.25) mg/dL Est GFR (CKD-EPI)AfAm (>60 ml/min/1.73 sqM) Est GFR (CKD-EPI)NonAf (>60 ml/min/1.73 sqM) Glucose (74-99) mg/dL Estimated Ave Glu mg/dL Hemoglobin A1c (4.0-6.0) % Calcium (8.4-10.2) mg/dL Total Bilirubin (0.2-1.3) mg/dL AST (17-59) U/L ALT (4-49) U/L Alkaline Phosphatase (38-126) U/L Total Protein (6.3-8.2) g/dL Albumin (3.5-5.0) g/dL Triglycerides 58 (<150) mg/dL Cholesterol 120 (<200) mg/dL LDL Cholesterol, Calc 59 (0-99) mg/dL HDL Cholesterol 49 (40-60) mg/dL TSH 0.319 L (0.465-4.680) mIU/L Disposition Clinical Impression: Drug-induced psychotic disorder Disposition: TRANSFER TO PSYCH HOSP/UNIT Condition: Stable Is patient prescribed a controlled substance at d/c from ED?: No Time of Disposition: 15:36 Decision to Admit Reason: Admit from EC Decision Date: 01/22/20 Decision Time: 15:36
[2020-01-21] MEDS ORDERED: LORazepam 2 MG/ML INJ IM STA (12:43)
[2020-01-21 13:13] LABS: Basophils # (A) 0.1 k/uL (0-0.2); Basophils % (A) 1 %; Eosinophils # (A) 0.1 k/uL (0-0.7); Eosinophils % (A) 1 %; HGB 14.6 gm/dL (13.0-17.5); Lymphocytes # (A) 2.5 k/uL (1.0-4.8); Lymphocytes % (A) 21 %; MCH 30.3 pg (25.0-35.0); MCHC 32.5 g/dL (31.0-37.0); MCV 93.1 fL (80.0-100.0); Mean Platelet Volume 7.2; Monocytes # (A) 0.8 k/uL (0-1.0); Monocytes % (A) 6 %; Neutrophils # (A) 8.3 k/uL (1.3-7.7); Neutrophils % (A) 69 %; Platelet Count 367 k/uL (150-450); RBC 4.83 m/uL (4.30-5.90); RDW 12.3 % (11.5-15.5); WBC 12.1 k/uL (3.8-10.6)
[2020-01-21 13:23] LABS: ALT 51 U/L (4-49); AST 48 U/L (17-59); African American GFR (CKD) >90 (>60 ml/min/1.73 sqM); Albumin 4.8 g/dL (3.5-5.0); Alkaline Phosphatase 59 U/L (38-126); Anion Gap 10 mmol/L; Blood Urea Nitrogen 17 mg/dL (9-20); Calcium 9.4 mg/dL (8.4-10.2); Carbon Dioxide 26 mmol/L (22-30); Chloride 104 mmol/L (98-107); Glucose 134 mg/dL (74-99); Non-African American GFR(CKD) >90 (>60 ml/min/1.73 sqM); Potassium 3.8 mmol/L (3.5-5.1); Sodium 140 mmol/L (137-145); Total Bilirubin 1.5 mg/dL (0.2-1.3); Total Protein 7.2 g/dL (6.3-8.2)
[2020-01-22] MEDS ORDERED: MAG HYDROX/AL HYDROX/SIMETH 30 ML CUP PO PRN (12:50)
[2020-01-22] MEDS ORDERED: MAGNESIUM HYDROXIDE 2,400 MG/10 ML CUP PO PRN (12:50)
[2020-01-22] MEDS ORDERED: ACETAMINOPHEN TAB 325 MG TAB PO PRN (12:50)
[2020-01-22] MEDS ORDERED: ZIPRASIDONE 20 MG VIAL IM PRN (12:50)
[2020-01-22] MEDS ORDERED: LORazepam 2 MG/ML INJ IM PRN (12:53)
[2020-01-22] MEDS ORDERED: traZODone HCL 50 MG TAB PO PRN (12:54)
[2020-01-22] MEDS: LORazepam 1 MG TAB PO PRN (14:08)
[2020-01-22] MEDS: NICOTINE 14MG/24HR PATCH TRANSDERM SCH (14:08)
--- NOTE | 2020-01-22 17:34 | P.CONS ---
History of Present Illness - Reason for Consult Consult date: 01/22/20 - History of Present Illness Patient is a 29-year-old male with a PMH of polysubstance abuse and tobacco abuse who presented to the ED and please custody for bizarre behavior. The patient was reportedly hallucinating and acting strangely and was brought in for psychiatric evaluation. He was thereby admitted to the mental health unit where he was seen and evaluated earlier today. The patient reported that over the pas t few days he has been using crystal meth along with IV heroin. He reports that it may be the drugs that caused him to act that way. He reports smoking a few cigarettes daily. Denied any additional complaints. Denied fever, chills, chest pain, shortness of nausea, vomiting, abdominal pain, diarrhea. In the emergency room, laboratory evaluation and revealed a WBC count of 12.1, sodium of 140, potassium 3.8, BUN 17, creatinine 1.07, glucose 134, total bilirubin 1.5, and ALT of 51. Review of Systems Pertinent positives and negatives as discussed in HPI, a complete review of systems was performed and all other systems are negative. Past Medical History Past Medical History: No Reported History History of Any Multi-Drug Resistant Organisms: Unobtainable Past Surgical History: Unable to Obtain Additional Past Surgical History / Comment(s): neck surgery Past Psychological History: Unable to Obtain Smoking Status: Current some day smoker Past Alcohol Use History: Occasional Past Drug Use History: Marijuana - Past Family History Mother History Unknown: Yes Medications and Allergies Home Medications Medication Instructions Recorded Confirmed Type No Known Home Medications 01/21/20 01/21/20 History Allergies Allergy/AdvReac Type Severity Reaction Status Date / Time No Known Allergies Allergy Verified 01/21/20 14:47 Physical Exam Vitals: Vital Signs Temp Pulse Pulse Resp BP BP Pulse Ox 01/22/20 14:04 97.2 F L 85 16 115/61 96 01/22/20 10:00 16 01/22/20 09:00 16 01/22/20 08:00 66 16 98/55 100 01/22/20 02:00 90 18 130/74 97 Intake and Output 01/22/20 01/22/20 01/22/20 06:59 14:59 22:59 Other: Weight 74.1 kg General: non toxic, no distress, appears at stated age, normal weight Derm: no unusual rashes/lesions no unusual ecchymoses, warm, dry Head: atraumatic, normocephalic, symmetric Eyes: EOMI, no lid lag, anicteric sclera, pupils equal round reactive to light ENT: Nose and ears atraumatic, no thrush, no pharyngeal erythema Neck: No thyromegaly, no cervical lymphadenopathy, trachea midline, supple Mouth: no lip lesion, mucus membranes moist Cardiovascular: S1S2 reg, no murmur, positive posterior tibial pulse bilateral, no edema, capillary refill less than 2 seconds Lungs: CTA bilateral, no rhonchi, no rales , no accessory muscle use Abdominal: soft, nontender to palpation, no guarding, no appreciable organomegaly, normal bowel sounds Ext: no gross muscle atrophy, muscle strength 5 out of 5 in all 4 extremities grossly, no contractures, Neuro: CN II-XI grossly intact, light touch intact all 4 extremities, finger to nose within normal limits, Psych: Alert, oriented, guarded affect Results CBC & Chem 7: 01/21/20 13:02 01/21/20 13:02 Assessment and Plan Plan: Psychosis, likely secondary to polysubstance abuse -As per psychiatry -Monitor for signs of withdrawal -Improved for now Leukocytosis -No signs of active infection at this time -Likely secondary to acute distress or -Monitor for now Thank you for allowing us to participate in the care of this patient. We will follow peripherally. Do not hesitate to contact us with questions. Someone can be reached from the [facility] hospitalist group at all hours of the day at [phone].
[2020-01-23] MEDS: NICOTINE 14MG/24HR PATCH TRANSDERM SCH (09:03)
[2020-01-23] MEDS: LORazepam 1 MG TAB PO PRN ×2 (09:05→17:09)
--- NOTE | 2020-01-23 13:04 | P.HP ---
Psychiatric H&P - . H&P Date: 01/23/20 History & Physical: IDENTIFYING DATA: This 29-year-old single male admitted to the psychiatric unit involuntarily with a history of paranoia and disorganization. HISTORY OF PRESENT ILLNESS: The police brought him to the ED and completed a Petition that read "Elissa appears to be suffering from mental illness, possibly schizophrenia. Said he is no longer Zuhair but goes by "Lumini." Observed sweating profusely. Jogging around. ... Paranoid that people are doing things to him." In the ED the EPS nurse notes that he was hard to assess. He is very suspicious of any question asked. He would only drink fluids that are unopened and refuses to eat. She notes that he had been walking into [employer] houses and looking at their property. I initially evaluated him on 01/15/2020 when he presented to the [facility] in a confused and disorganized state. The [facility] police found him wandering along [address]. When the EMS arrived on the scene they noted that he was "talking gibberish". He told the EMS personnel that his name was not Zuhair but it was "Lumini." He acknowledged that he had been using methamphetamine (UDS was positive for amphetamines, methamphetamine and marijuana). He remained in [facility] after he was released from the hospital on 01/15/2020. He has been "staying" in various hotels and continued to use methamphetamine. He was a vague about the amount and frequency but acknowledged that he had been using more than he normally had no past. He perseverated about discharge and alleged that he has recovered from the effects of methamphetamine. He has been smoking the methamphetamine and denied that he has insufflated or injected drugs. He is not provided a urine sample for UDS. He has limited recollection of events prior to admission. He remembers approaching the police commissioner's and asking for their help. During their conversation they suggested that he come to the hospital. He described feeling depressed but denied feelings of hopelessness, helplessness or worthlessness. He denied feeling persistently anxious, tense or nervous. He denied obsessions or compulsions. He denied experiencing auditory, visual or olfactory hallucinations, ideas reference, thought insertion, thought broadcasting or thought control. He does not believe that he is person called "Lumini" PAST PSYCHIATRIC HISTORY: He is had no prior psychiatric hospitalizations. He met with "counselors" when he was in foster care as a child and adolescent. He was prescribed psychotropic medications, primarily Ritalin, Adderall and Seroquel, when he was a child and adolescent. PAST MEDICAL HISTORY: He denied history of major medical problems ALLERGIES: NO KNOWN DRUG ALLERGIES SUBSTANCE USE HISTORY: He began using methamphetamine was 17 years old. He denied history of IV use. He was abstinent from methamphetamine from age [age] and he relapsed following a rotator cuff injury. He admitted to use of other drugs including cocaine, heroin, marijuana but his drug of choice has been methamphetamine. He attended Alcoholics Anonymous with a friend last summer but has never attended a formal substance abuse treatment program. FAMILY PSYCHIATRIC/SUBSTANCE USE HISTORY: His mother had a history of substance use problems LEGAL HISTORY: He is on probation for charges of fleeing the police commissioner. The supervising conditions include not leaving the state without permission. SOCIAL HISTORY: His born in [place] and raised by his mother until he was 7 years old. CPS removed him and placed in foster care where he lived from ages [age] and due to neglect by his mother. He lived with his mother and grandmother after he left the foster care system. Recently he has been living with friends or with his grandmother (who lives in [facility]). He is currently unemployed and receiving unemployment compensation. He worked for [employer] for 7 years until he resigned last year. He talked about experiencing a injury and during the period of disability he would relapse to methamphetamine. He continued using methamphetamine return to [facility] and was experiencing job related difficulties. 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 MENTAL STATUS EXAM: He presented as a casually groomed 34-year-old male who is dressed in hospital gown. He made intermittent eye contact but appeared to attend to interview. He had a tattoo of a butterfly and has left forearm and the numbers "[id number]" tattooed on his right forearm. He had no prominent physical abnormalities. He had a depressed facial expression. He is alert and oriented to person, place and time. He had psychomotor retardation but no abnormal involuntary movements. Her speech was spontaneous with decreased rate and rhythm. His affect was depressed and not reactive. He denied suicidal ideation or wishes. He denied homicidal ideation. He denied feeling hopeless, helpless or worthless. He ruminated up with circumstances led to hospitalization is to be discharged. Heexpressed ideas reference, paranoid ideation or delusions. His thinking was concrete but his associations were coherent, logical and goal directed. He did not express clang associations, neologisms or blocking. He denied hallucinations did not appear to be responding to internal stimuli. Global impression of intellect is average. He is aware of his substance use problem but his ambivalent about treatment. STRENGTHS: Good physical health, stable income, history of stable employment, supportive family WEAKNESSES: Unstable housing, methamphetamine use problems IMPRESSION: He is a 29-year-old single male who was history of methamphetamine use disorder. He presented to Medical Center involuntarily with signs and symptoms of acute psychosis. The psychotic symptoms developed after a 2 week binge on methamphetamine. He is aware of his methamphetamine use and is also aware of methamphetamine can cause psychological problems including psychosis. However, he is ambivalent about substance abuse treatment. There are no apparent signs and symptoms of psychosis currently and he is experiencing methamphetamine withdrawal. He should be treated inpatient basis, history of psychopharmacology and multimodal therapy. PRINCIPLE DIAGNOSIS: Methamphetamine induced psychotic disorder, methamphetamine withdrawal, methamphetamine use disorder severe RECOMMENDATION: Admit to the psychiatric unit. Safety precautions. Consult medicine for initial physical exam and medical history. fish hatchery worker to complete initial psychosocial assessment and coordinate discharge and aftercare services. Ativan 1 mg by mouth 3 times a day when necessary for anxiety or agitation and/or Geodon 20 mg IM twice a day when necessary for agitation acute psychosis. Continue discussion of need for substance abuse treatment and recomm end transfer to a residential substance abuse treatment program. Encourage participation in therapeutic groups and activities. Evaluate clinical status response to treatment daily basis. Allergies Allergy/AdvReac Type Severity Reaction Status Date / Time No Known Allergies Allergy Verified 01/21/20 14:47 Vital Signs Temp 98.0 F 01/23/20 06:50 Pulse 62 01/23/20 06:50 Resp 17 01/23/20 06:50 BP 125/58 01/23/20 06:50 Pulse Ox 99 01/23/20 06:50 Intake & Output 01/22/20 01/23/20 01/23/20 18:59 06:59 18:59 Weight 74.1 kg Laboratory Last Values WBC 12.1 k/uL (3.8-10.6) H 01/21/20 13:02 RBC 4.83 m/uL (4.30-5.90) 01/21/20 13:02 Hgb 14.6 gm/dL (13.0-17.5) 01/21/20 13:02 Hct 45.0 % (39.0-53.0) 01/21/20 13:02 MCV 93.1 fL (80.0-100.0) 01/21/20 13:02 MCH 30.3 pg (25.0-35.0) 01/21/20 13:02 MCHC 32.5 g/dL (31.0-37.0) 01/21/20 13:02 RDW 12.3 % (11.5-15.5) 01/21/20 13:02 Plt Count 367 k/uL (150-450) 01/21/20 13:02 Neutrophils % 69 % 01/21/20 13:02 Lymphocytes % 21 % 01/21/20 13:02 Monocytes % 6 % 01/21/20 13:02 Eosinophils % 1 % 01/21/20 13:02 Basophils % 1 % 01/21/20 13:02 Neutrophils # 8.3 k/uL (1.3-7.7) H 01/21/20 13:02 Lymphocytes # 2.5 k/uL (1.0-4.8) 01/21/20 13:02 Monocytes # 0.8 k/uL (0-1.0) 01/21/20 13:02 Eosinophils # 0.1 k/uL (0-0.7) 01/21/20 13:02 Basophils # 0.1 k/uL (0-0.2) 01/21/20 13:02 Sodium 140 mmol/L (137-145) 01/21/20 13:02 Potassium 3.8 mmol/L (3.5-5.1) 01/21/20 13:02 Chloride 104 mmol/L (98-107) 01/21/20 13:02 Carbon Dioxide 26 mmol/L (22-30) 01/21/20 13:02 Anion Gap 10 mmol/L 01/21/20 13:02 BUN 17 mg/dL (9-20) 01/21/20 13:02 Creatinine 1.07 mg/dL (0.66-1.25) 01/21/20 13:02 Est GFR (CKD-EPI)AfAm >90 (>60 ml/min/1.73 sqM) 01/21/20 13:02 Est GFR (CKD-EPI)NonAf >90 (>60 ml/min/1.73 sqM) 01/21/20 13:02 Glucose 134 mg/dL (74-99) H 01/21/20 13:02 Calcium 9.4 mg/dL (8.4-10.2) 01/21/20 13:02 Total Bilirubin 1.5 mg/dL (0.2-1.3) H 01/21/20 13:02 AST 48 U/L (17-59) 01/21/20 13:02 ALT 51 U/L (4-49) H 01/21/20 13:02 Alkaline Phosphatase 59 U/L (38-126) 01/21/20 13:02 Total Protein 7.2 g/dL (6.3-8.2) 01/21/20 13:02 Albumin 4.8 g/dL (3.5-5.0) 01/21/20 13:02 Triglycerides 58 mg/dL (<150) 01/21/20 13:02 Cholesterol 120 mg/dL (<200) 01/21/20 13:02 LDL Cholesterol, Calc 59 mg/dL (0-99) 01/21/20 13:02 HDL Cholesterol 49 mg/dL (40-60) 01/21/20 13:02 TSH 0.319 mIU/L (0.465-4.680) L 01/21/20 13:02 01/23/20 09:59 01/23/20 12:56
[2020-01-24 04:47] VITALS: PULSE 77
[2020-01-24] MEDS: NICOTINE 14MG/24HR PATCH TRANSDERM SCH (08:30)
[2020-01-24] MEDS: LORazepam 1 MG TAB PO PRN ×2 (08:31→17:03)
--- NOTE | 2020-01-24 11:49 | P.PN ---
Progress Note - Text Progress Note Date: 01/24/20 Clinical Problems: Methamphetamine induced psychotic disorder (resolved), methamphetamine withdrawal, methamphetamine use disorder severe Interim history: I reviewed the medical record, interviewed the patient and discuss his treatment and treatment plan during team meeting. He complained of feeling tired. He described listlessness, fatigue and anhedonia. He is been sleeping throughout the night and spends most of his time in bed. He does not participate in therapeutic groups and activities or socialize or interact with peers or staff. He is ambivalent about substance abuse treatment. He is particularly opposed to a residential program. He talked about entering a outpatient program in [place] because he plans to return to [place] when he is discharged. Mental status exam: He presented as a casually groomed 29-year-old male who was pleasant on approach. He made eye contact and appeared to attend to interview. He had a depressed facial expression. He showed psychomotor retardation but no abnormal movements. His speech was slow with decreased volume and amount. His affect was depressed and not reactive. He denied suicidal ideation or wishes. He denied homicidal ideation. He denied feeling hopeless, helpless or worthless. He did not express ideas reference, paranoid ideation or delusions. His thinking was concrete but his associations were coherent, logical and goal directed. He denied hallucinations and did not appear to be responding to internal stimuli. Assessment: The acute psychosis has resolved and he has signs and symptoms of methamphetamine withdrawal. He is minimizing the severity of his methamphetamine use disorder and appears only superficially interested and some space treatment. Plan: Continue inpatient treatment. Deferral hearing is pending. Continue safety precautions. Continue Ativan 1 mg 3 times a day when necessary for an xiety or agitation and Geodon 20 mg IM twice a day for agitation acute psychosis. Plan to discharge after his deferral hearing. glueline worker to coordinate discharge and aftercare services.
[2020-01-25 06:26] VITALS: BP 97/53; RESP 17
[2020-01-25] MEDS ORDERED: LORazepam 0.5 MG TAB PO PRN (08:01)
[2020-01-25] MEDS: NICOTINE 14MG/24HR PATCH TRANSDERM SCH (08:16)
[2020-01-25 13:24] VITALS: TEMP 98.1
--- NOTE | 2020-01-25 14:32 | P.DS ---
Providers Date of admission: 01/22/20 12:30 Attending physician: Fernando Magana MD Consults: 01/22/20 12:50 Consult Physician Routine Consulting Provider: [facility] Consult Reason/Comments: H&P and medical Do you want consulting provider notified?: Yes Primary care physician: Stated None - Discharge Diagnosis(es) (1) Drug-induced psychotic disorder Current Visit: Yes Status: Resolved Priority: High (2) Amphetamine withdrawal Current Visit: Yes Status: Acute Priority: Low (3) Methamphetamine use disorder, severe Current Visit: Yes Status: Chronic Priority: High Hospital Course: HISTORY: This 29-year-old single male admitted to the psychiatric unit involuntarily with a history of paranoia and disorganization. The police brought him to the ED and completed a Petition that read "Elissa appears to be suffering from mental illness, possibly schizophrenia. Said he is no longer Zuhair but goes by "Lumini." Observed sweating profusely. Jogging around. ... Paranoid that people are doing things to him." In the ED the EPS nurse notes that he was hard to assess. He is very suspicious of any question asked. He would only drink fluids that are unopened and refuses to eat. She notes that he had been walking into peoples houses and looking at their property. I initially evaluated him on 01/15/2020 when he presented [facility] in a confused and disorganized state. The critical access hospital police found him wandering along [address] When the EMS arrived on the scene they noted that he was "talking gibberish". He told the EMS personnel that his name was not Zuhair but it was "Lumini." He acknowledged that he had been using methamphetamine (UDS was positive for amphetamines, methamphetamine and marijuana). He remained in [facility] after he was released from the hospital on 01/15/2020. He has been "staying" in various hotels and continued to use methamphetamine. He was a vague about the amount and frequency but acknowledged that he had been using more than he normally had no past. He perseverated about discharge and alleged that he has recovered from the effects of methamphetamine. He has been smoking the methamphetamine and denied that he has insufflated or injected drugs. He is not provided a urine sample for UDS. He has limited recollection of events prior to admission. He remembers approaching the police officer crime prevention's and asking for their help. During their conversation they suggested that he come to the hospital. He described feeling depressed but denied feelings of hopelessness, helplessness or worthlessness. He denied feeling persistently anxious, tense or nervous. He denied obsessions or compulsions. He denied experiencing auditory, visual or olfactory hallucinations, ideas reference, thought insertion, thought broadcasting or thought control. He does not believe that he is person called "Lumini" He is had no prior psychiatric hospitalizations. He met with "counselors" when he was in foster care as a child and adolescent. He was prescribed psychotropic medications, primarily Ritalin, Adderall and Seroquel, when he was a child and adolescent. HOSPITAL COURSE: We intend to the psychiatric unit involuntarily under care of this play writer. We provided a comprehensive biopsychosocial assessment. 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 We submitted the Petition and supporting Clinical Certificates to probate court. He is psychotic symptoms resolved fairly quickly on the psychiatric unit. He did not require IM Geodon or Ativan for agitation or acute psychosis. He spent most of the hospitalization his bed, only for meals or requesting a dose of Ativan. He participated minimally in therapeutic groups and activities. He met with his document review attorney and opted to deferred the probate hearing. He declined residential substance abuse services. Instead, he plans to return to [place] to live with his grandmother and seek substance abuse services and with [facility]. MENTAL STATUS ON DISCHARGE: He presented as a thin casually groomed 29-year-old male who was pleasant on approach. He made eye contact and attended the interview. He had no prominent physical abnormalities. He had a sad facial expression. He was alert and oriented to person, place and time. He showed psychomotor retardation but no abnormal involuntary movements. Her speech was spontaneous with decreased rate and rhythm. His affect was depressed but reactive. He denied suicidal ideation and wishes. He denied homicidal ideation. He denied feeling hopeless, helpless or worthless. He did not express ideas reference, paranoid ideation or delusions. His thinking was concrete. Associations were coherent, logical and goal directed. He denied hallucinations didn't appear to responding to internal stimuli. DISPOSITION: He prescribed no medications at discharge. We recommended he continue nicotine patches for smoking cessation. He has a follow-up appointment at [facility] at 01/30/2020 at 2 PM. Patient Condition at Discharge: Stable Plan - Discharge Summary New Discharge Prescriptions: New Nicotine 14Mg/24Hr Patch [Habitrol] 1 patch TRANSDERM DAILY patch Discharge Medication List Nicotine 14Mg/24Hr Patch [Habitrol] 1 patch TRANSDERM DAILY patch 01/25/20 [Rx] Follow up Appointment(s)/Referral(s): [facility] [Outside] - 01/30/20 2:00 pm (by phone w/Rehana ) None,Stated [Primary Care Provider] - 1-2 days [facility] [NON-STAFF] - 1 Week Patient Instructions/Handouts: How to Stop Smoking (DC), Brief Psychotic Disorder (DC), Methamphetamine Abuse (DC) Activity/Diet/Wound Care/Special Instructions: Activity and diet as tolerated. Avoid the use of street drugs and alcohol. Take all medications as prescribed. When you are in need of refills on your me dications please contact your medical provider and/or outpatient psychiatrist to have this done. Please go to scheduled outpatient appointment for aftercare treatment. If symptoms return or become worse, call the crisis line at and/or go to the nearest emergency room for evaluation Discharge Disposition: HOME SELF-CARE
== END 2020-01-25 15:18 | disposition home or self-care (01) | DRG 897 ==
LOC: EC 11:36 → 3MHU 01-22 12:30
PROVIDERS: ADMIT Psychiatry & Neurology Psychiatry; ATTEND Psychiatry & Neurology Psychiatry
DX: F15.259 Other stimulant dependence with stimulant-induced psychotic disorder, unspecified (principal); F15.23 Other stimulant dependence with withdrawal; Z71.6 Tobacco abuse counseling; F17.210 Nicotine dependence, cigarettes, uncomplicated; Z56.0 Unemployment, unspecified; Z65.3 Problems related to other legal circumstances
CPT/HCPCS: 36415; 80053; 80061; 82075; 83036; 84443; 85025; 99285

== ENCOUNTER 2020-04-15 02:39 | Emergency (ER) | payer OTHER ==
--- NOTE | 2020-04-15 02:44 | ED ---
Psych HPI <Karyn Daigle - Last Filed: 04/15/20 05:45> <Dawson Singh - Last Filed: 04/15/20 13:28> - General Stated Complaint: Police petition Time Seen by Provider: 04/15/20 02:42 - History of Present Illness Initial Comments: Zuhair is a 29-year-old male with a history of psychiatric hospitalizations in the past is brought to the ER today by police after being found wandering the street, soaking wet wearing shorts and a hooded sweatshirt and 44 weather. Upon police evaluation the patient was noted to have complete flight of ideas, some paranoias and seem to be acutely psychotic and decision was made to bring him to the hospital for evaluation. Upon of initial evaluation patient appears to be somewhat paranoid, does not want to be evaluated. He does make multiple nonsensical statements. Including stating that he was on a mission to save people. States the only state 3 people. States that he doesn't know where he is can stay tonight. (Karyn Daigle) - Related Data Previous Rx's Medication Instructions Recorded Nicotine 14Mg/24Hr Patch [Habitrol] 1 patch TRANSDERM DAILY patch 01/25/20 Allergies Allergy/AdvReac Type Severity Reaction Status Date / Time No Known Allergies Allergy Verified 04/15/20 07:32 Review of Systems ROS Other: All systems not noted in ROS Statement are negative. <Karyn Daigle - Last Filed: 04/15/20 05:45> ROS Other: All systems not noted in ROS Statement are negative. <Dawson Singh - Last Filed: 04/15/20 13:28> ROS Statement: Those systems with pertinent positive or pertinent negative responses have been documented in the HPI. Past Medical History Past Medical History: No Reported History History of Any Multi-Drug Resistant Organisms: Unobtainable Past Surgical History: Unable to Obtain Additional Past Surgical History / Comment(s): neck surgery Past Psychological History: Unable to Obtain Past Alcohol Use History: Occasional Past Drug Use History: Marijuana - Past Family History Mother History Unknown: Yes <Karyn Daigle - Last Filed: 04/15/20 05:45> General Exam <Karyn Daigle - Last Filed: 10/05/20 05:45> - General Exam Comments Initial Comments: Physical Exam GENERAL: Patient is well-developed and well-nourished. Patient is nontoxic and well-hydrated HENT: Normocephalic, Atraumatic. EYES: PERRL, EOMI PULMONARY: Hyperventilating CARDIOVASCULAR: Tachycardic, regular ABDOMEN: Non-distended SKIN: No rashes or bruising : Deferred NEUROLOGIC: Alert and oriented to person, place, president Pressured speech Normal gait MUSCULOSKELETAL: Moving all extremities with no apparent injury PSYCHIATRIC: Rapid pressured speech, flight of ideas, paranoia (Karyn Daigle) Course Vital Signs 04/15/20 04/15/20 02:47 06:45 Temperature 98.1 F 98.5 F Pulse Rate 116 H 98 Respiratory 20 18 Rate Blood Pressure 168/83 144/54 O2 Sat by Pulse 98 98 Oximetry Medical Decision Making <Karyn Daigle - Last Filed: 04/15/20 05:45> - Lab Data Result diagrams: 04/15/20 07:01 04/15/20 07:01 <Dawson Singh - Last Filed: 04/15/20 13:28> - Medical Decision Making The patient was seen and evaluated immediately upon arrival to the emergency department Patient arrives with police patient is acutely agitated, paranoid he's noted to be soaking wet and very cold, his clothing was removed she is given gown and warm blankets Patient was treated with IM medications for anxiolysis, he would not consent to blood draw Patient's breath alcohol is negative The patient has been petitioned by police Patient is medically cleared for evaluation by emergency psychiatric services who will evaluate him in the morning Do believe the patient is acutely psychotic potentially danger to himself and others and therefore I will complete a psychiatric certification at this time. (Karyn Daigle) Dr. Sorto is the psychiatrist came down to negative least serve the patient because he believed was secondary to drugs and when he interviewed the patient he came to the conclusion that it was secondary to drugs and discharge the patient home. (Dawson Singh) - Lab Data Lab Results 04/15/20 04/15/20 Range/Units 07:01 07:01 WBC 11.6 H (3.8-10.6) k/uL RBC 4.48 (4.30-5.90) m/uL Hgb 13.8 (13.0-17.5) gm/dL Hct 41.6 (39.0-53.0) % MCV 92.8 (80.0-100.0) fL MCH 30.8 (25.0-35.0) pg MCHC 33.2 (31.0-37.0) g/dL RDW 12.9 (11.5-15.5) % Plt Count 251 (150-450) k/uL Neutrophils % 69 % Lymphocytes % 21 % Monocytes % 7 % Eosinophils % 1 % Basophils % 1 % Neutrophils # 8.0 H (1.3-7.7) k/uL Lymphocytes # 2.4 (1.0-4.8) k/uL Monocytes # 0.8 (0-1.0) k/uL Eosinophils # 0.1 (0-0.7) k/uL Basophils # 0.1 (0-0.2) k/uL Sodium 139 (137-145) mmol/L Potassium 4.1 (3.5-5.1) mmol/L Chloride 104 (98-107) mmol/L Carbon Dioxide 27 (22-30) mmol/L Anion Gap 8 mmol/L BUN 21 H (9-20) mg/dL Creatinine 0.72 (0.66-1.25) mg/dL Est GFR (CKD-EPI)AfAm >90 (>60 ml/min/1.73 sqM) Est GFR (CKD-EPI)NonAf >90 (>60 ml/min/1.73 sqM) Glucose 84 (74-99) mg/dL Calcium 9.4 (8.4-10.2) mg/dL Total Bilirubin 2.4 H (0.2-1.3) mg/dL AST 57 (17-59) U/L ALT 34 (4-49) U/L Alkaline Phosphatase 55 (38-126) U/L Total Protein 7.0 (6.3-8.2) g/dL Albumin 4.5 (3.5-5.0) g/dL Salicylates <1.0 mg/dL Acetaminophen <10.0 ug/mL Serum Alcohol <10 mg/dL Disposition Is patient prescribed a controlled substance at d/c from ED?: No <Karyn Daigle P - Last Filed: 04/15/20 05:45> Is patient prescribed a controlled substance at d/c from ED?: No Time of Disposition: 13:27 <Dawson Singh - Last Filed: 04/15/20 13:28> Clinical Impression: Psychosis, Amphetamine abuse Disposition: HOME SELF-CARE Condition: Stable Instructions (If sedation given, give patient instructions): Methamphetamine Abuse (ED) Referrals: None,Stated [Primary Care Provider] - 1-2 days
[2020-04-15] MEDS ORDERED: HALOPERIDOL LACTATE 5 MG/ML 1 ML VIAL IM STA (02:58)
[2020-04-15] MEDS ORDERED: diphenhydrAMINE 50 MG/ML 1 ML VIAL IM STA (02:58)
[2020-04-15] MEDS ORDERED: LORazepam 2 MG/ML INJ IM STA (02:58)
[2020-04-15 06:57] VITALS: RESP 18; TEMP 98.5
[2020-04-15 07:12] LABS: Basophils # (A) 0.1 k/uL (0-0.2); Basophils % (A) 1 %; Eosinophils # (A) 0.1 k/uL (0-0.7); Eosinophils % (A) 1 %; HCT 41.6 % (39.0-53.0); HGB 13.8 gm/dL (13.0-17.5); Lymphocytes # (A) 2.4 k/uL (1.0-4.8); Lymphocytes % (A) 21 %; MCH 30.8 pg (25.0-35.0); MCHC 33.2 g/dL (31.0-37.0); MCV 92.8 fL (80.0-100.0); Mean Platelet Volume 6.9; Monocytes # (A) 0.8 k/uL (0-1.0); Monocytes % (A) 7 %; Neutrophils % (A) 69 %; Platelet Count 251 k/uL (150-450); RBC 4.48 m/uL (4.30-5.90); RDW 12.9 % (11.5-15.5); WBC 11.6 k/uL (3.8-10.6)
[2020-04-15 07:30] LABS: ALT 34 U/L (4-49); AST 57 U/L (17-59); Acetaminophen <10.0 ug/mL; African American GFR (CKD) >90 (>60 ml/min/1.73 sqM); Albumin 4.5 g/dL (3.5-5.0); Alcohol <10 mg/dL; Alkaline Phosphatase 55 U/L (38-126); Anion Gap 8 mmol/L; Blood Urea Nitrogen 21 mg/dL (9-20); Calcium 9.4 mg/dL (8.4-10.2); Carbon Dioxide 27 mmol/L (22-30); Chloride 104 mmol/L (98-107); Glucose 84 mg/dL (74-99); Non-African American GFR(CKD) >90 (>60 ml/min/1.73 sqM); Potassium 4.1 mmol/L (3.5-5.1); Salicylate <1.0 mg/dL; Sodium 139 mmol/L (137-145); Total Bilirubin 2.4 mg/dL (0.2-1.3)
[2020-04-15 13:47] VITALS: BP 138/79; PULSE 80
--- NOTE | 2020-04-15 13:47 | P.PN ---
Progress Note - Text Progress Note Date: 04/15/20 Interval History: Patient was seen today for evaluation and reassessment if patient still needs inpatient psychiatric admission. Patient does have a history of mental health treatment in January 2020 where he was admitted for a short period of time for drug-induced psychosis as patient is a known methamphetamine user. At that time patient did not require any medications and also signed a deferral for court. Patient was evaluated by [facility] earlier in the day. According to ER report and nursing report, patient was petitioned by police and appeared to be confused and presented to the ER after not being able to find his phone outside and appeared to be what in his clothes and unkempt. Patient at that time was also endorsing auditory hallucinations and acting bizarre. Patient was evaluated this afternoon by specification writer at the bedside. Patient was polite and calm and cooperative with specification writer. He answered questions appropriately. He states that he came from [facility] where he is currently living to visit a friend however states that he is only in the area for one day and lost his phone outside. He claims that he was using methamphetamine earlier in the day "a small amount" and states that he uses methamphetamine approximately every other day. He denied any other drug use. He states that currently she denies any depression or any anxiety. He states that he wants help finding where his friend lives to help him get back to [place]. He states that he is enrolled in a rehab substance use program in [place] called [facility]. He denies any paranoia or any delusions today. He denied any auditory or visual hallucinations. He denies any suicidal or homicidal ideations intent or plan. Mental Status Exam: General Appearance: [Patient appears to be stated age is alert, directable, and attempts to be cooperative.] Wearing hospital gown. Behavior: [Patient is laying in bed without any agitated behavior.] Speech: Patient's speech is fluent and nonpressured. Vague at times. Mood/Affect: Mood is improving mildly, denies any depression, affect is congruent and constricted. Suicidality/Homicidality: Patient denies having any suicidal or homicidal ideation intent or plan. Perceptions: Patient denies any visual hallucinations [and denies any auditory hallucinations] Though content/process: [There is no evidence of any delusional thought content and thought process is linear and goal-directed.] Poverty of content. Memory and concentration: AOX3, grossly intact for the purposes of this session Judgment and insight: Chronically poor, Improving mildly Assessment Methamphetamine abuse and intoxication Plan: -After evaluation from specification writer at the bedside, one to one sitter can be discontinued and patient would be suitable for outpatient treatment at this time. NOT recommending inpatient psych at this time. No medications are indicated at this time and patient was not prescribed medications previously on discharge back in January. Patient's symptoms when he first came in the hospital and condition appeared to be directly related to patient's methamphetamine abu se. Home Care Specialist discussed with patient the harmful effects of substances on patient's physical and mental health, patient agreed and understood. Patient is agreeable to go back to [place] from his friend's house in the area and claims that he wants to get into [facility] inpatient rehab in [place]. He completed a negative certificate and informed EPS nurse and patient's current nurse in the ER.
== END 2020-04-15 13:45 | disposition home or self-care (01) ==
LOC: EC 02:39
DX: F15.129 Other stimulant abuse with intoxication, unspecified (principal); F29 Unspecified psychosis not due to a substance or known physiological condition; R45.1 Restlessness and agitation; F60.0 Paranoid personality disorder; R06.4 Hyperventilation; R00.0 Tachycardia, unspecified; F17.200 Nicotine dependence, unspecified, uncomplicated
CPT/HCPCS: 82075; 80053; 85025; 83520; 80329; 80320; 96372 ×3; 99285; J2060; J1200; J1630

== ENCOUNTER 2020-04-17 22:03 | Emergency (ER) | payer OTHER ==
[2020-04-17] MEDS ORDERED: ZIPRASIDONE 20 MG VIAL IM STA (22:14)
[2020-04-17] MEDS ORDERED: LORazepam 2 MG/ML INJ IM STA (22:14)
--- NOTE | 2020-04-17 22:16 | ED ---
Psych HPI - General Stated Complaint: Mental Health Time Seen by Provider: 04/17/20 22:11 Source: patient, police Mode of arrival: ambulatory - History of Present Illness Initial Comments: This patient is 29-year-old man who is brought to have evaluation by [facility] department personnel. They reportedly had stopped question the patient as he was running with punctured on and it was somewhat cold out Side. On arrival, the patient is evasive, not anticipating much in the history and physical. He is very paranoid of staff and somewhat confrontational. MD Complaint: other -: minutes(s) Associated Psychiatric Symptoms: delusions Quality: constant Improves With: none Worsens With: none Associated Symptoms: denies other symptoms - Related Data Previous Rx's Medication Instructions Recorded Nicotine 14Mg/24Hr Patch [Habitrol] 1 patch TRANSDERM DAILY patch 01/25/20 Allergies Allergy/AdvReac Type Severity Reaction Status Date / Time No Known Allergies Allergy Verified 04/15/20 07:32 Review of Systems ROS Statement: Those systems with pertinent positive or pertinent negative responses have been documented in the HPI. ROS Other: All systems not noted in ROS Statement are negative. Limitations: ROS unobtainable due to patients medical condition (Patient uncooperative with history and physical) Cardiovascular: Denies: chest pain Gastrointestinal: Denies: abdominal pain, vomiting Musculoskeletal: Denies: back pain Neurological: Denies: headache Past Medical History Past Medical History: No Reported History History of Any Multi-Drug Resistant Organisms: Unobtainable Past Surgical History: Unable to Obtain Additional Past Surgical History / Comment(s): neck surgery Past Psychological History: Unable to Obtain Past Alcohol Use History: Occasional Past Drug Use History: Marijuana - Past Family History Mother History Unknown: Yes General Exam General appearance: alert, in no apparent distress Head exam: Present: atraumatic, normocephalic Eye exam: Present: normal appearance. Absent: scleral icterus, conjunctival injection Neck exam: Present: full ROM Respiratory exam: Present: normal lung sounds bilaterally. Absent: respiratory distress, wheezes, rales, rhonchi, stridor Cardiovascular Exam: Present: regular rate, normal rhythm, normal heart sounds. Absent: systolic murmur, diastolic murmur, rubs, gallop GI/Abdominal exam: Present: soft. Absent: tenderness Extremities exam: Present: normal inspection Neurological exam: Present: alert, normal gait. Absent: motor sensory deficit Psychiatric exam: Present: agitated, other (Patient does display some delusional thought content, stating that he is concerned that staff here may attempt to poison him. He is denying depressed mood, suicidal or homicidal ideation.). Absent: depressed, flat affect, homicidal ideation, suicidal ideation Skin exam: Present: warm, dry, intact, normal color. Absent: rash Course Vital Signs 04/17/20 04/18/20 22:36 01:59 Temperature 98 F 98.7 F Pulse Rate 126 H 94 Respiratory 18 18 Rate Blood Pressure 141/94 141/84 O2 Sat by Pulse 98 96 Oximetry Procedures - Restraint - Face to Face Restraint Occurrence 1 Patient's Immediate Situation: Endangers self safety, Endangers staff safety Patient's Reaction to the Intervention: Uncooperative, Angry, Bizarre, Suspicious, Aggressive Patient's Medical & Behavioral Condition: Awake, Paranoid, Flight of ideas, Bizarre behavior Need to Continue or Terminate Restraint or Seclusion: Continue Face to Face Eval of Restraint Date: 04/17/20 Face to Face Eval of Restraint Time: 22:15 Medical Decision Making - Medical Decision Making Patient seen and evaluated by EPS. He does display some mild paranoid delusional thought content, and slightly disordered thought processes, but he does deny suicidal or homicidal ideation and for the most part not overtly poor judgment. At this point appears to have some very mild psychosis. EPS is arranging to have recheck for tomorrow Disposition Clinical Impression: Psychosis Disposition: HOME SELF-CARE Condition: Fair Instructions (If sedation given, give patient instructions): Mood Disorders (ED) Is patient prescribed a controlled substance at d/c from ED?: No Referrals: None,Stated [Primary Care Provider] - 1-2 days
[2020-04-17 22:41] VITALS: RESP 18
[2020-04-18 02:04] VITALS: BP 141/84; PULSE 94; TEMP 98.7
== END 2020-04-18 02:04 | disposition home or self-care (01) ==
LOC: EC 22:03
DX: F22 Delusional disorders (principal); F17.210 Nicotine dependence, cigarettes, uncomplicated
CPT/HCPCS: 82075; 99285

== ENCOUNTER 2021-01-06 07:31 | Inpatient (IN) | payer OTHER ==
--- NOTE | 2021-01-06 07:49 | ED ---
General Adult HPI - General Stated complaint: altered mental status Time Seen by Provider: 01/06/21 07:32 Source: patient, RN notes reviewed Mode of arrival: EMS Limitations: no limitations - History of Present Illness Initial comments: Patient is a pleasant 30-year-old male presenting to the emergency Department by EMS stating that he needs to relax. Patient states he has a lot going on. When questioned regarding his rash she states it is from using his Magic. Patient states he more he uses Magic to worsen the rash gets but he is okay with that. Patient is not currently on any medications secondary to he states that doctors cannot figure them out. Patient states if any further information I can get it from [facility], also known as [employer]. No suicidal or homicidal thoughts. Patient denies drug use. Rare alcohol use. Patient denies hallucinations. - Related Data Home Medications Medication Instructions Recorded Confirmed No Known Home Medications 01/06/21 01/06/21 Allergies Allergy/AdvReac Type Severity Reaction Status Date / Time No Known Allergies Allergy Verified 01/06/21 09:28 Review of Systems ROS Statement: Those systems with pertinent positive or pertinent negative responses have been documented in the HPI. ROS Other: All systems not noted in ROS Statement are negative. Constitutional: Denies: fever Eyes: Denies: eye pain ENT: Denies: throat pain Respiratory: Denies: cough Cardiovascular: Denies: chest pain Endocrine: Denies: fatigue Gastrointestinal: Denies: abdominal pain Genitourinary: Denies: urgency Musculoskeletal: Denies: back pain Skin: Denies: rash Neurological: Denies: weakness Psychiatric: Reports: as per HPI Past Medical History Past Medical History: No Reported History History of Any Multi-Drug Resistant Organisms: Unobtainable Past Surgical History: Unable to Obtain Additional Past Surgical History / Comment(s): neck surgery Past Psychological History: Unable to Obtain Past Alcohol Use History: Occasional Past Drug Use History: Marijuana - Past Family History Mother History Unknown: Yes General Exam Limitations: no limitations General appearance: alert, in no apparent distress Head exam: Present: normocephalic Eye exam: Present: normal appearance, PERRL, EOMI. Absent: nystagmus ENT exam: Present: normal oropharynx Neck exam: Present: normal inspection Respiratory exam: Present: normal lung sounds bilaterally Cardiovascular Exam: Present: regular rate, normal rhythm GI/Abdominal exam: Present: soft. Absent: tenderness Extremities exam: Present: normal inspection Neurological exam: Present: alert Psychiatric exam: Present: manic Expanded Focused psych exam: Present: restlessness, flight of ideas Skin exam: Present: other (Patient does have bilateral wrist region with several small lesions, each only 1-2 mm with central eschar appearance) Course Vital Signs 01/06/21 01/06/21 01/06/21 07:33 08:49 09:00 Temperature 99.3 F Pulse Rate 110 H Respiratory 18 18 Rate Blood Pressure 160/106 O2 Sat by Pulse 95 Oximetry 01/06/21 01/06/21 10:09 10:53 Temperature Pulse Rate 83 Respiratory 18 18 Rate Blood Pressure 152/98 O2 Sat by Pulse 98 Oximetry Medical Decision Making - Medical Decision Making Patient did try to elope. Patient was seen by mental health services with plans for psychiatric admission Disposition Clinical Impression: Psychosis Disposition: TRANSFER TO PSYCH HOSP/UNIT Is patient prescribed a controlled substance at d/c from ED?: No Referrals: None,Stated [Primary Care Provider] - 1-2 days Decision Time: 11:15
[2021-01-06] MEDS ORDERED: PERMETHRIN 1% CREME RINSE 59 ML LIQUID TOPICAL ONE (08:00)
[2021-01-06] MEDS ORDERED: PERMETHRIN 5% CREAM 60 GM TUBE TOPICAL ONE (08:30)
[2021-01-06] MEDS ORDERED: LORazepam 2 MG/ML INJ IM STA (10:42)
[2021-01-06] MEDS ORDERED: ZIPRASIDONE 20 MG VIAL IM STA (10:43)
[2021-01-06 12:11] LABS: Basophils # (A) 0.1 k/uL (0-0.2); Basophils % (A) 0 %; Eosinophils # (A) 0.1 k/uL (0-0.7); Eosinophils % (A) 1 %; HCT 42.7 % (39.0-53.0); HGB 14.8 gm/dL (13.0-17.5); Lymphocytes # (A) 1.5 k/uL (1.0-4.8); Lymphocytes % (A) 10 %; MCHC 34.6 g/dL (31.0-37.0); MCV 92.5 fL (80.0-100.0); Mean Platelet Volume 6.8; Monocytes # (A) 0.9 k/uL (0-1.0); Monocytes % (A) 6 %; Neutrophils % (A) 82 %; Platelet Count 277 k/uL (150-450); RBC 4.62 m/uL (4.30-5.90); RDW 11.9 % (11.5-15.5); WBC 14.8 k/uL (3.8-10.6)
[2021-01-06 12:21] LABS: AST 101 U/L (17-59); African American GFR (CKD) >90 (>60 ml/min/1.73 sqM); Albumin 4.6 g/dL (3.5-5.0); Alkaline Phosphatase 47 U/L (38-126); Anion Gap 13 mmol/L; Blood Urea Nitrogen 17 mg/dL (9-20); Calcium 9.5 mg/dL (8.4-10.2); Carbon Dioxide 22 mmol/L (22-30); Chloride 104 mmol/L (98-107); Glucose 154 mg/dL (74-99); Non-African American GFR(CKD) >90 (>60 ml/min/1.73 sqM); Potassium 3.3 mmol/L (3.5-5.1); Sodium 139 mmol/L (137-145); Total Bilirubin 1.4 mg/dL (0.2-1.3); Total Protein 6.9 g/dL (6.3-8.2)
[2021-01-06 12:31] LABS: ALT 60 U/L (4-49)
[2021-01-06] MEDS ORDERED: ACETAMINOPHEN TAB 325 MG TAB PO PRN (13:58)
[2021-01-06] MEDS ORDERED: LORazepam 1 MG TAB PO PRN (13:58)
[2021-01-06] MEDS ORDERED: MAG HYDROX/AL HYDROX/SIMETH 30 ML CUP PO PRN (13:58)
[2021-01-06] MEDS ORDERED: MAGNESIUM HYDROXIDE 2,400 MG/10 ML CUP PO PRN (13:58)
[2021-01-06] MEDS ORDERED: haloperidoL 5 MG TAB PO PRN (13:59)
[2021-01-06] MEDS ORDERED: LORazepam 2 MG/ML INJ IM PRN (13:59)
[2021-01-06] MEDS ORDERED: HALOPERIDOL LACTATE 5 MG/ML 1 ML VIAL IM PRN (13:59)
[2021-01-06] MEDS: NICOTINE 14MG/24HR PATCH TRANSDERM SCH (15:23)
[2021-01-07 06:54] VITALS: RESP 18
[2021-01-07] MEDS: NICOTINE 14MG/24HR PATCH TRANSDERM SCH (08:23)
[2021-01-07] MEDS ORDERED: traZODone HCL 50 MG TAB PO PRN (11:57)
[2021-01-07 12:34] LABS: Chol/HDL Ratio 3.41; LDL Cholesterol,Calculated 101.2 mg/dL (0.0-131.0); VLDL Calculation 16.8 mg/dL (5.00-40.00)
--- NOTE | 2021-01-07 12:44 | P.HP ---
Psychiatric H&P - . H&P Date: 01/07/21 History & Physical: Allergies Allergy/AdvReac Type Severity Reaction Status Date / Time No Known Allergies Allergy Verified 01/06/21 09:28 Vital Signs Temp 98.5 F 01/07/21 06:54 Pulse 88 01/07/21 06:54 Resp 18 01/07/21 06:54 BP 95/50 01/07/21 06:54 Pulse Ox 97 01/06/21 14:01 Intake & Output 01/06/21 01/07/21 01/07/21 18:59 06:59 18:59 Weight 77.111 kg Laboratory Last Values WBC 14.8 k/uL (3.8-10.6) H 01/06/21 11:45 RBC 4.62 m/uL (4.30-5.90) 01/06/21 11:45 Hgb 14.8 gm/dL (13.0-17.5) 01/06/21 11:45 Hct 42.7 % (39.0-53.0) 01/06/21 11:45 MCV 92.5 fL (80.0-100.0) 01/06/21 11:45 MCH 32.0 pg (25.0-35.0) 01/06/21 11:45 MCHC 34.6 g/dL (31.0-37.0) 01/06/21 11:45 RDW 11.9 % (11.5-15.5) 01/06/21 11:45 Plt Count 277 k/uL (150-450) 01/06/21 11:45 MPV 6.8 01/06/21 11:45 Neutrophils % 82 % 01/06/21 11:45 Lymphocytes % 10 % 01/06/21 11:45 Monocytes % 6 % 01/06/21 11:45 Eosinophils % 1 % 01/06/21 11:45 Basophils % 0 % 01/06/21 11:45 Neutrophils # 12.0 k/uL (1.3-7.7) H 01/06/21 11:45 Lymphocytes # 1.5 k/uL (1.0-4.8) 01/06/21 11:45 Monocytes # 0.9 k/uL (0-1.0) 01/06/21 11:45 Eosinophils # 0.1 k/uL (0-0.7) 01/06/21 11:45 Basophils # 0.1 k/uL (0-0.2) 01/06/21 11:45 Sodium 139 mmol/L (137-145) 01/06/21 11:45 Potassium 3.3 mmol/L (3.5-5.1) L 01/06/21 11:45 Chloride 104 mmol/L (98-107) 01/06/21 11:45 Carbon Dioxide 22 mmol/L (22-30) 01/06/21 11:45 Anion Gap 13 mmol/L 01/06/21 11:45 BUN 17 mg/dL (9-20) 01/06/21 11:45 Creatinine 0.82 mg/dL (0.66-1.25) 01/06/21 11:45 Est GFR (CKD-EPI)AfAm >90 (>60 ml/min/1.73 sqM) 01/06/21 11:45 Est GFR (CKD-EPI)NonAf >90 (>60 ml/min/1.73 sqM) 01/06/21 11:45 Glucose 154 mg/dL (74-99) H 01/06/21 11:45 Calcium 9.5 mg/dL (8.4-10.2) 01/06/21 11:45 Total Bilirubin 1.4 mg/dL (0.2-1.3) H 01/06/21 11:45 AST 101 U/L (17-59) H 01/06/21 11:45 ALT 60 U/L (4-49) H 01/06/21 11:45 Alkaline Phosphatase 47 U/L (38-126) 01/06/21 11:45 Total Protein 6.9 g/dL (6.3-8.2) 01/06/21 11:45 Albumin 4.6 g/dL (3.5-5.0) 01/06/21 11:45 Triglycerides 84.0 mg/dL (0.0-149.0) 01/06/21 11:45 Cholesterol 167 mg/dL (0-200) 01/06/21 11:45 LDL Cholesterol, Calc 101.2 mg/dL (0.0-131.0) 01/06/21 11:45 VLDL Cholesterol, Calc 16.80 mg/dL (5.00-40.00) 01/06/21 11:45 HDL Cholesterol 49.0 mg/dL (40.0-60.0) 01/06/21 11:45 Cholesterol/HDL Ratio 3.41 01/06/21 11:45 TSH 0.606 mIU/L (0.465-4.680) 01/06/21 11:45 Coronavirus (PCR) Not Detected (Not Detectd) 01/06/21 11:45 01/07/21 12:37 IDENTIFYING DATA: Patient is a 30-year-old male with a history of polysubstance abuse who currently lives with his grandmother in a house in [facility]. He has no kids is single and is currently unemployed HPI: Patient presented to the hospital via EMS according to ER report stating that "he needs to relax". ER report also mention the patient was describing a rash that he had "from using his magic". Patient was apparently not on any psychiatric medications. Patient did not provide a urine drug screen. His AST and ALT were elevated. Patient had received a Geodon IM injection for agitation in the ER before being admitted to the psychiatric unit. Patient was seen today in agreeable to seek a television script writer. He claims that "I sobered up" and described using methamphetamine with his friends "a little bit". He states that he uses it recreationally approximately 1-2 times a month. He states that he was driving around intoxicated and the police pulled him over and "they knew all was on something". He states that he was brought into the hospital afterwards. He was fairly worried about his truck being towed from a parking lot as he left it there. He states that he lives in [place] and was visiting a friend in the area. He denies any depression and claims that his mood is "okay" and denies any anxiety today. He denies any racing thoughts. He claims that his sleep is fair. Patient denies any suicidal or homicidal ideations intent or plan. At this time patient denies any auditory or visual hallucinations. Patient denies any flight of ideas racing thoughts and increased in goal directed behavior. Patient admits to using methamphetamine as described above he also smokes marijuana occasionally and cigarettes daily. PAST PSYCHIATRIC HISTORY: Patient states that he has a history of polysubstance abuse and drug-induced psychotic. Patient denies being on any psychiatric medications. Patient was previously psychiatrically hospitalized at [facility] in January 2020 for a drug-induced psychotic episode. He was not discharged on any medications at that time. Patient denies any psychiatric outpatient follow-up. Patient denies any history of suicide attempts in the past. PMH:denies ALLERGIES: as per EMR CHEMICAL DEPENDENCY HISTORY: as per HPI FAMILY PSYCHIATRIC/SUBSTANCE USE HISTORY: denies SOCIAL HISTORY: Patient was born and raised in [place] and moved to [place]. He currently lives in [place]. He claims that he completed high school and has some college credits. He claims that he went to long term in 2018 for a DUI. He claims that he currently lives with his grandmother has no kids is single and is currently laid off from [employer] where he used to work as a. MENTAL STATUS EXAM: General Appearance: Patient appears to be disheveled in appearance stated age is alert, directable, and attempts to cooperate. Patient appears to have poor hygiene and grooming. Behavior: Patient is seated without any agitated behavior. Speech: Patient's speech is fluent and nonpressured. Soft tone Mood/Affect: Patient reports their mood is "okay", affect is congruent and constricted. Suicidality/Homicidality: Patient denies having any homicidal ideation intent or plan. Denies any suicidal ideations intent or plan Perceptions: Patient denies any visual hallucinations and denies any auditory hallucinations Though content/process: There is no evidence of any delusional thought content and thought process is linear and goal-directed. Focused on discharge and his truck. Memory and concentration: AOX3, grossly intact for the purposes of this session. Can spell "WORLD" backwards Judgment and insight: poor STRENGTHS/WEAKNESSES: strength is that patient is resilient. 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 Patient has signed adult voluntary form and medication consent and is placed in patient's chart. -Medications : Will start patient on trazodone 50 mg daily at bedtime when necessary for insomnia/mood. -Ativan and Haldol PRN for agitation/aggression -Patient was counselled on substance abuse and desired to cut back on use -Patient was informed of the risks, benefits and side effects of the medication and patient verbally consented to taking the medications. Patient signed med consent form and was placed in chart. -Internal Medicine consult to perform medical evaluation and physical. -NRT - nicotine patch -SW on board for discharge planning. Encourage patient to participate in groups to work on coping skills. Patient is currently refusing rehab. Likely discharge tomorrow
[2021-01-07 13:48] LABS: Hemoglobin A1C 4.9 % (4.0-6.0)
[2021-01-07] MEDS: LORazepam 1 MG TAB PO PRN ×2 (16:37→22:50)
[2021-01-08] MEDS: NICOTINE 14MG/24HR PATCH TRANSDERM SCH (08:19)
[2021-01-08 08:21] VITALS: BP 112/60; PULSE 94; TEMP 97.7
[2021-01-08] MEDS ORDERED: traZODone HCL 100 MG TAB PO PRN (10:03)
--- NOTE | 2021-01-08 10:15 | P.DS ---
Providers Date of admission: 01/06/21 13:27 Expected date of discharge: 01/08/21 Attending physician: Dano Sorto MD Consults: 01/06/21 13:58 Consult Physician Routine Consulting Provider: Qiana Physician Consult Reason/Comments: H&P and medical Do you want consulting provider notified?: Yes Primary care physician: Stated None - Discharge Diagnosis(es) (1) Methamphetamine-induced psychotic disorder Current Visit: Yes Status: Acute Priority: High (2) Cannabis use disorder, mild, abuse Current Visit: Yes Status: Acute Priority: Medium (3) Methamphetamine abuse Current Visit: Yes Status: Acute Priority: High (4) Nicotine dependence Current Visit: Yes Status: Acute Priority: Low Hospital Course: Admission HPI: Admission note was completed by investment underwriter "Patient is a 30-year-old male with a history of polysubstance abuse who currently lives with his grandmother in a house in [facility]. He has no kids is single and is currently unemployed. Patient presented to the hospital via EMS according to ER report stating that "he needs to relax". ER report also mention the patient was describing a rash that he had "from using his magic". Patient was apparently not on any psychiatric medications. Patient did not provide a urine drug screen. His AST and ALT were elevated. Patient had received a Geodon IM injection for agitation in the ER before being admitted to the psychiatric unit. Patient was seen today in agreeable to seek a investment underwriter. He claims that "I sobered up" and described using methamphetamine with his friends "a little bit". He states that he uses it recreationally approximately 1-2 times a month. He states that he was driving around intoxicated and the police pulled him over and "they knew all was on something". He states that he was brought into the hospital afterwards. He was fairly worried about his truck being towed from a parking lot as he left it there. He states that he lives in [place] and was visiting a friend in the area. He denies any depression and claims that his mood is "okay" and denies any anxiety today. He denies any racing thoughts. He claims that his sleep is fair. Patient denies any suicidal or homicidal ideations intent or plan. At this time patient denies any auditory or visual hallucinations. Patient denies any flight of ideas racing thoughts and increased in goal directed behavior. Patient admits to using methamphetamine as described above he also smokes marijuana occasionally and cigarettes daily." Hospital course: Upon admission to the unit patient was initially bizarre and delusional however by the time patient was seen by investment underwriter he was much more sober and directable and able to sign the voluntary form for admission. Patient got along well with other patients on the unit and followed unit protocol. Patient was compliant with the medications and denied any side effects throughout hospital course. Patient was started on trazodone and titrate up the dose of 100 mg daily at bedtime when necessary for mood/insomnia. Patient did not require any antipsychotics as he cleared/sobered by the time he was admitted onto the psychiatric unit. Patient spoke of his stressors and engaged in therapy both group and individual. Patient was also seen by medical team for history and physical exam. Patient was noticed to have elevated LFTs and claimed that he had a hx of Hep C in the past which was apparently treated and also had a hx of alcohol abuse. Throughout the course of the hospitalization patient gradually improved with regards to mood, anxiety, psychosis, sleep and became more future oriented with improved insight and judgment. On the day of discharge patient denied any suicidal or homicidal ideations intent or plan denied any auditory or visual hallucinations. Patient endorsed wanting to live for his health and family. The patient denied any access to guns or weapons. Patient denied any paranoia and did not endorse any delusions. Patient does have a significant history of substance abuse and was counseled on abstaining from all substances including alcohol and marijuana. Patient was offered however declined inpatient substance-abuse rehab. Patient elected to do outpatient substance use treatment program through [facility]. Patient was also counseled on the medications and need for regular compliance and was encouraged to follow-up with their outpatient appointment for mental health and also for primary care. Prior to discharge a family meeting will be arranged by community mental health social worker to answer any questions and ensure safety upon discharge. Mental status exam: General Appearance: Patient appears to be stated age is alert, pleasant, and cooperative. Patient is in no acute distress and has improved hygiene and grooming Behavior: Patient is calmly seated without any agitated behavior. Speech: Patient's speech is fluent and nonpressured. Mood/Affect: Patient reports their mood is "better", affect is congruent Suicidality/Homicidality: Patient denies having any suicidal or homicidal ideation intent or plan. Perceptions: Patient denies any auditory or visual hallucinations. Though content/process: There is no evidence of any delusional thought content and thought process is linear and goal-directed. more future oriented Memory and concentration: AOX3, grossly intact for the purposes of this session. Can spell "WORLD" backwards correctly. Judgment and insight: chronically poor, however has improved with guarded prognosis Impression: Methamphetamine-induced psychosis Methamphetamine abuse Cannabis use disorder mild Nicotine dependence Plan: -Continue with discharge today as patient has improved and stabilized psychiatrically and is not currently an imminent threat to himself and/or others. Patient will remain at chronically elevated risk for harm to self and/or others due to his impulsivity and polysubstance abuse. -Continue medications: No need for antipsychotic at this time is patient's psychotic symptoms have cleared. Continue with trazodone 100 mg daily at bedtime when necessary for insomnia/mood. -Patient was counseled on the need for medication compliance and appropriate follow-up at mental health and also primary care for medical issues. Patient verbalized understanding and agreed. -Social work to arrange for and conduct family meeting to ensure safety upon discharge and answer any questions/concerns. Social work also to arrange for patients follow up appointments with [facility] for psychiatric care along with follow up with primary care provider. -Patient counseled on abstaining from recreational drugs and marijuana and alcohol. Was informed/educated on the adverse effects on their physical and mental health. Patient verbally agreed and understood. Patient was offered substance abuse treatment however declined at this time. -Patient was instructed to return to the hospital or seek immediate medical care if their psychiatric or medical symptoms do worsen or reoccur. Allergies Allergy/AdvReac Type Severity Reaction Status Date / Time No Known Allergies Allergy Verified 01/06/21 09:28 Laboratory Results WBC 14.8 k/uL (3.8-10.6) H 01/06/21 11:45 RBC 4.62 m/uL (4.30-5.90) 01/06/21 11:45 Hgb 14.8 gm/dL (13.0-17.5) 01/06/21 11:45 Hct 42.7 % (39.0-53.0) 01/06/21 11:45 MCV 92.5 fL (80.0-100.0) 01/06/21 11:45 MCH 32.0 pg (25.0-35.0) 01/06/21 11:45 MCHC 34.6 g/dL (31.0-37.0) 01/06/21 11:45 RDW 11.9 % (11.5-15.5) 01/06/21 11:45 Plt Count 277 k/uL (150-450) 01/06/21 11:45 MPV 6.8 01/06/21 11:45 Neutrophils % 82 % 01/06/21 11:45 Lymphocytes % 10 % 01/06/21 11:45 Monocytes % 6 % 01/06/21 11:45 Eosinophils % 1 % 01/06/21 11:45 Basophils % 0 % 01/06/21 11:45 Neutrophils # 12.0 k/uL (1.3-7.7) H 01/06/21 11:45 Lymphocytes # 1.5 k/uL (1.0-4.8) 01/06/21 11:45 Monocytes # 0.9 k/uL (0-1.0) 01/06/21 11:45 Eosinophils # 0.1 k/uL (0-0.7) 01/06/21 11:45 Basophils # 0.1 k/uL (0-0.2) 01/06/21 11:45 Sodium 139 mmol/L (137-145) 01/06/21 11:45 Potassium 3.3 mmol/L (3.5-5.1) L 01/06/21 11:45 Chloride 104 mmol/L (98-107) 01/06/21 11:45 Carbon Dioxide 22 mmol/L (22-30) 01/06/21 11:45 Anion Gap 13 mmol/L 01/06/21 11:45 BUN 17 mg/dL (9-20) 01/06/21 11:45 Creatinine 0.82 mg/dL (0.66-1.25) 01/06/21 11:45 Est GFR (CKD-EPI)AfAm >90 (>60 ml/min/1.73 sqM) 01/06/21 11:45 Est GFR (CKD-EPI)NonAf >90 (>60 ml/min/1.73 sqM) 01/06/21 11:45 Glucose 154 mg/dL (74-99) H 01/06/21 11:[address] Glu mg/dL 94 01/06/21 11:45 Hemoglobin A1c 4.9 % (4.0-6.0) 01/06/21 11:45 Calcium 9.5 mg/dL (8.4-10.2) 01/06/21 11:45 Total Bilirubin 1.4 mg/dL (0.2-1.3) H 01/06/21 11:45 AST 101 U/L (17-59) H 01/06/21 11:45 ALT 60 U/L (4-49) H 01/06/21 11:45 Alkaline Phosphatase 47 U/L (38-126) 01/06/21 11:45 Total Protein 6.9 g/dL (6.3-8.2) 01/06/21 11:45 Albumin 4.6 g/dL (3.5-5.0) 01/06/21 11:45 Triglycerides 84.0 mg/dL (0.0-149.0) 01/06/21 11:45 Cholesterol 167 mg/dL (0-200) 01/06/21 11:45 LDL Cholesterol, Calc 101.2 mg/dL (0.0-131.0) 01/06/21 11:45 VLDL Cholesterol, Calc 16.80 mg/dL (5.00-40.00) 01/06/21 11:45 HDL Cholesterol 49.0 mg/dL (40.0-60.0) 01/06/21 11:45 Cholesterol/HDL Ratio 3.41 01/06/21 11:45 TSH 0.606 mIU/L (0.465-4.680) 01/06/21 11:45 Coronavirus (PCR) Not Detected (Not Detectd) 01/06/21 11:45 Vital Signs Temp 97.7 F 01/08/21 08:20 Pulse 94 01/08/21 08:20 Resp 18 01/08/21 08:20 BP 112/60 01/08/21 08:20 Pulse Ox 97 01/08/21 08:20 Patient Condition at Discharge: Stable Plan - Discharge Summary New Discharge Prescriptions: New Nicotine 14Mg/24Hr Patch [Habitrol] 1 patch TRANSDERM DAILY 14 Days patch traZODone HCL [Desyrel] 100 mg PO HS PRN 30 Days tab PRN Reason: Insomnia Discharge Medication List Nicotine 14Mg/24Hr Patch [Habitrol] 1 patch TRANSDERM DAILY 14 Days patch 01/08/21 [Rx] traZODone HCL [Desyrel] 100 mg PO HS PRN 30 Days tab 01/08/21 [Rx] Follow up Appointment(s)/Referral(s): Linette Smith [Other] - 01/14/21 8:00 am (Intake If you are 25 miles or less from location and need a ride please call and they can provide ride. Take photo ID, and plan to be all day for intake. Packed lunch is welcome if you would like to bring it Inates are 8am-1300 walk in ) None,Stated [Primary Care Provider] - 1-2 days Activity/Diet/Wound Care/Special Instructions: Activity and diet as tolerated. Avoid the use of street drugs and alcohol. Take all medications as prescribed. When you are in need of refills on your medications please contact your medical provider and/or outpatient psychiatrist to have this done. Please go to scheduled outpatient appointment for aftercare treatment. If symptoms return or become worse, call the crisis line at and/or go to the nearest emergency room for evaluation. Discharge Disposition: HOME SELF-CARE
== END 2021-01-08 13:48 | disposition home or self-care (01) | DRG 897 ==
LOC: EC 07:31 → 3MHU 13:27
PROVIDERS: ADMIT Psychiatry & Neurology Psychiatry; ATTEND Psychiatry & Neurology Psychiatry
DX: F15.159 Other stimulant abuse with stimulant-induced psychotic disorder, unspecified (principal); F12.10 Cannabis abuse, uncomplicated; F17.200 Nicotine dependence, unspecified, uncomplicated; F41.9 Anxiety disorder, unspecified; G47.00 Insomnia, unspecified; Z79.899 Other long term (current) drug therapy; Z20.822 Contact with and (suspected) exposure to COVID-19
CPT/HCPCS: 36415; 80053; 80061; 82075; 83036; 84443; 85025; 87635; 96372; 99285

== ENCOUNTER 2021-01-09 | Inpatient (IN) | payer OTHER | END 2021-01-14 14:30 | disposition home or self-care (01) | DRG 897 | PROVIDERS: ADMIT Psychiatry & Neurology Psychiatry | CPT/HCPCS: 80053; 80306; 82075; 87635; 99285 ==